=== PATIENT | female | born 1975 | race Caucasian/White ===

== ENCOUNTER 2016-09-12 10:36 | Emergency (ER) | payer BC ==
[2016-09-12] MEDS ORDERED: HYDROmorphone 1 MG/ML SYRINGE IVP STA ×2 (11:40→13:28)
[2016-09-12] MEDS ORDERED: SODIUM CHLORIDE 0.9% 1,000 ML IV ONE (11:40)
[2016-09-12] MEDS ORDERED: HYDROmorphone 1 MG/ML SYRINGE ONE ×2 (11:49→13:28)
[2016-09-12] MEDS ORDERED: LIDOCAINE VISCOUS 2% 15 ML UDC MM STA (12:10)
[2016-09-12] MEDS ORDERED: MAG HYDROX/AL HYDROX/SIMETH 30 ML UDC PO STA (12:10)
[2016-09-12] MEDS ORDERED: LIDOCAINE VISCOUS 2% 15 ML UDC MM ONE (13:04)
[2016-09-12] MEDS ORDERED: MAG HYDROX/AL HYDROX/SIMETH 30 ML UDC ONE (13:05)
[2016-09-12] MEDS ORDERED: FAMOTIDINE 20 MG/50 ML 50 ML IV ONE ×2 (13:09→13:27)
[2016-09-12] MEDS ORDERED: IOPAMIDOL-300 100 ML VIAL IVP ONE (14:02)
[2016-09-12] MEDS ORDERED: HYDROcod/ACETAM 5/325 MG TABLET PO STA (15:32)
[2016-09-12] MEDS ORDERED: HYDROcod/ACETAM 5/325 MG TABLET ONE (15:37)
== END 2016-09-12 15:58 | disposition home or self-care (01) ==
DX: R10.11 Right upper quadrant pain (principal); K21.9 Gastro-esophageal reflux disease without esophagitis; K76.0 Fatty (change of) liver, not elsewhere classified; I25.10 Atherosclerotic heart disease of native coronary artery without angina pectoris; I25.2 Old myocardial infarction; I10 Essential (primary) hypertension; G47.30 Sleep apnea, unspecified; E03.9 Hypothyroidism, unspecified; Z87.442 Personal history of urinary calculi; M19.90 Unspecified osteoarthritis, unspecified site; Z79.82 Long term (current) use of aspirin
CPT/HCPCS: 36415; 74174; 76705; 80053; 81003; 81025; 83690; 84484; 84703; 85025; 93005; 93010; 96374; 96375; 96376; 99284; A9270; J1170; Q9967

== ENCOUNTER 2016-11-23 09:53 | Emergency (ER) | payer BC ==
[2016-11-23] MEDS ORDERED: PROPARACAINE 0.5% OPHTH DROPS 15 ML ONE (10:01)
[2016-11-23 10:03] VITALS: BP 159/98
--- NOTE | 2016-11-23 10:20 | ED Physician Documentation ---
PD HPI OPHTHO - Stated complaint Stated Complaint: PAINFUL R EYE - Chief complaint Chief Complaint: Heent - History obtained from History obtained from: Patient, Friend - History of Present Illness Timing - onset: Today Timing - duration: Hours Timing - details: Gradual onset, Still present Location: Right Quality / character: Itching, Sharp Associated symptoms: Redness, Swelling, Tearing, FB sensation. No: Decreased vision, Loss of vision, Headache Contributing factors: Wears contacts, Other (has had this previously) Similar symptoms before: Diagnosis (herpes kerititis) Recently seen: Not recently seen - Additional information Additional information: 41-year-old female awoke with pain in the right eye some swelling and erythema to the conjunctivae. She notes that she has had this previously and she has been told to immediately start medication if she feels itching.She does have vaginal herpes and she did have intercourse last night and she states that periodically dry rough sex will cause an outbreak of herpes. She is wondering if the 2 are correlated and she knows that she does not have an outbreak currently. Review of Systems Constitutional: denies: Fever, Chills, Fatigue, Sweats Eyes: reports: Irritation. denies: Decreased vision Ears: denies: Ear pain Nose: reports: Other (There is no sore in the nose or cold sore). denies: Congestion Throat: denies: Sore throat Respiratory: denies: Dyspnea, Cough GI: denies: Abdominal Pain, Nausea : denies: Dysuria Skin: denies: Rash Musculoskeletal: denies: Neck pain, Back pain, Extremity pain PD PAST MEDICAL HISTORY - Past Medical History Past Medical History: Yes Cardiovascular: Hypertension, Coronary artery disease, [place], Other Respiratory: Sleep apnea Neuro: None Endocrine/Autoimmune: HyPOthyroidism GI: GERD : Incontinence, Kidney stones HEENT: None Psych: Depression Musculoskeletal: Osteoarthritis Derm: Eczema, Other - Past Surgical History Past Surgical History: Yes 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 Cardiovascular: Coronary stent, Pacemaker - Present Medications Home Medications: Ambulatory Orders Medication Instructions Recorded Confirmed Aspirin 81 mg PO DAILY 11/08/12 09/12/16 Levothyroxine Sodium [Synthroid] 200 mcg ORAL DAILY 11/08/12 09/12/16 Metoprolol Succinate 25 mg PO DAILY 12/31/12 09/12/16 Trazodone HCl 50 mg PO DAILY PRN 07/30/13 09/12/16 Fenofibric Acid (Choline) 45 mg PO DAILY 06/24/15 09/12/16 [Trilipix] Hydrocodone/Acetaminophen [[place] 1 each PO Q6H PRN #20 tablet 06/24/15 09/12/16 5-325 Tablet] Rosuvastatin Calcium [Crestor] 40 mg PO DAILY 06/24/15 09/12/16 HYDROcod/ACETAM 5/325 [[place] 5/325] 1 ea PO Q6H PRN #10 tablet 09/12/16 Sucralfate 1 gm PO ACHS #120 tablet 09/12/16 raNITIdine [Zantac] 150 mg PO BID #60 tablet 09/12/16 Acyclovir 400 mg PO 5XD #35 tablet 11/23/16 - Allergies Allergies/Adverse Reactions: Allergies Allergy/AdvReac Type Severity Reaction Status Date / Time oxycodone [Oxycodone] AdvReac Intermediate agitated, Verified 09/12/16 10:41 itching. - Social History Does the pt smoke?: No Smoking Status: Never smoker Does the pt drink ETOH?: No Does the pt have substance abuse?: No - Immunizations Immunizations are current?: Yes - POLST Patient has POLST: No PD ED PE NORMAL - Vitals Vital signs reviewed: Yes (hypertensive) - General General: No acute distress, Well developed/nourished - HEENT HEENT: Atraumatic, PERRL, EOMI, Other (with fluroscien staining the right cornea has uptake in a spotted pattern consistent with herpes keretitis and not consistent with an abrasion. ) - Neck Neck: Supple, no meningeal sign, No bony TTP - Respiratory Respiratory: No respiratory distress - Derm Derm: Normal color, Warm and dry, No rash - Extremities Extremities: No deformity, No edema - Neuro Neuro: No motor deficit, No sensory deficit - Psych Psych: Normal mood, Normal affect Results - Vitals Vitals: Vital Signs - 24 hr 11/23/16 09:57 Temperature 36.3 C L Heart Rate 77 Respiratory 20 Rate Blood Pressure 159/98 H O2 Saturation 97 Oxygen O2 Source [With Activity] Room air O2 Source Room air PD MEDICAL DECISION MAKING - ED course Complexity details: reviewed old records, considered differential, d/w patient, d/w family ED course: 41 y/o female with redness and irritation to the right eye has some fluorscein uptake in the cornea in a spotted pattern and she has had similar problem in the right eye previously. She is placed on acyclovir. Departure - Departure Disposition: 01 Home, Self Care Clinical Impression: Herpes simplex keratitis of right eye Condition: Stable Instructions: ED Herpes Keratitis Follow-Up: Mona Collier PA-C [Primary Care Provider] - Prescriptions: Acyclovir 400 mg PO 5XD #35 tablet Forms: Activity restrictions
== END 2016-11-23 10:32 | disposition home or self-care (01) ==
LOC: ED 09:53
DX: B00.52 Herpesviral keratitis (principal); I10 Essential (primary) hypertension; I25.2 Old myocardial infarction; I25.10 Atherosclerotic heart disease of native coronary artery without angina pectoris; Z95.5 Presence of coronary angioplasty implant and graft; Z96.659 Presence of unspecified artificial knee joint; Z79.82 Long term (current) use of aspirin
CPT/HCPCS: 99283; J3490

== ENCOUNTER 2018-01-04 16:35 | Emergency (ER) | payer BC ==
--- NOTE | 2018-01-04 17:08 | ED Physician Documentation ---
PD HPI LOWER EXT INJURY - Stated complaint Stated Complaint: LT LEG PX/UNABLE TO BEND - Chief complaint Chief Complaint: Ext Problem - History obtained from History obtained from: Patient - History of Present Illness PD HPI LOW EXT INJURY LOCATION: Left, Knee (back of the knee), Calf Type of injury: No: Fall, Twist Timing - onset: How many days ago (has had pain in back of knee and calf for several days. Having some pains generally in thighs and other leg as well. Graudal onset without particular injury. Does work on her feet standing and worked long days the past few days.) Timing - duration: Days Timing - details: Gradual onset, Still present Worsened by: Moving, Palpating Associated symptoms: No: Weakness, Numbness, Swelling Similar symptoms before: Has not had sx before Recently seen: Not recently seen Review of Systems Constitutional: reports: Myalgias. 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 Cardiovascular: Coronary stent, Pacemaker - Present Medications Home Medications: Ambulatory Orders Medication Instructions Recorded Confirmed Aspirin 81 mg PO DAILY 11/08/12 09/12/16 Levothyroxine Sodium [Synthroid] 200 mcg ORAL DAILY 11/08/12 09/12/16 Metoprolol Succinate 25 mg PO DAILY 12/31/12 09/12/16 Trazodone HCl 50 mg PO DAILY PRN 07/30/13 09/12/16 Fenofibric Acid (Choline) 45 mg PO DAILY 06/24/15 09/12/16 [Trilipix] Hydrocodone/Acetaminophen [[place] 1 each PO Q6H PRN #20 tablet 06/24/15 09/12/16 5-325 Tablet] Rosuvastatin Calcium [Crestor] 40 mg PO DAILY 06/24/15 09/12/16 HYDROcod/ACETAM 5/325 [[place] 5/325] 1 ea PO Q6H PRN #10 tablet 09/12/16 Alprazolam [Xanax] 01/04/18 Cyclobenzaprine [Flexeril] 01/04/18 DULoxetine [Cymbalta] 01/04/18 Dexamethasone [Decadron] 4 mg PO DAILY #5 tablet 01/04/18 Gabapentin 01/04/18 HYDROcod/ACETAM 5/325 [[place] 5/325] 1 tab PO Q6H PRN #20 tablet 01/04/18 traZODone [Desyrel] 01/04/18 - Allergies Allergies/Adverse Reactions: Allergies Allergy/AdvReac Type Severity Reaction Status Date / Time No Known Drug Allergies Allergy Verified 01/04/18 18:48 - Social History Does the pt smoke?: No Smoking Status: Never smoker Does the pt drink ETOH?: No Does the pt have substance abuse?: No - Immunizations Immunizations are current?: Yes - POLST Patient has POLST: No PD ED PE NORMAL - Vitals Vital signs reviewed: Yes - General General: Alert and oriented X 3, No acute distress, Well developed/nourished - Cardiac Cardiac: RRR, No murmur - Respiratory Respiratory: Clear bilaterally - Abdomen Abdomen: Soft, Non tender - Back Back: No CVA TTP, No spinal TTP - Derm Derm: Normal color, Warm and dry, No rash - Extremities Extremities: Other (both legs with some general muscle tenderness in thighs and calves. Left upper calf with more tenderness. No noted deformity/effusion at knees themselves. ) - Neuro Neuro: Alert and oriented X 3, No motor deficit, No sensory deficit, Normal speech Results - Vitals Vitals: Oxygen O2 Source [With Activity] Room air O2 Source Room air - Labs Labs: Laboratory Tests 01/04/18 17:43 Sodium 135 Potassium 3.6 Chloride 103 Carbon Dioxide 26 Anion Gap 6.0 BUN 20 Creatinine 0.8 Estimated GFR (MDRD) 78 L Glucose 110 H Calcium 8.6 Magnesium 2.2 Total Bilirubin 0.7 AST 18 ALT 16 Alkaline Phosphatase 36 L Total Creatine Kinase 56 Total Protein 6.8 Albumin 4.2 Globulin 2.6 Albumin/Globulin Ratio 1.6 Lipase 28 - Rads (name of study) duplex U/S Radiology: Prelim report reviewed (left leg without DVT. ) PD MEDICAL DECISION MAKING - ED course Complexity details: reviewed results (Duplex without DVT.), considered differential (tendonitis from standing a lot. She is on cholesterol med and so consider myositis from that, given the diffuse muscle aches in legs. ), d/w patient - Sepsis Event Vital Signs: Oxygen O2 Source [With Activity] Room air O2 Source Room air Departure - Departure Disposition: 01 Home, Self Care Clinical Impression: Leg pain, bilateral, Tendonitis Clinical Impression: (Ruled Out): Deep vein thrombosis Condition: Stable Record reviewed to determine appropriate education?: Yes Instructions: ED Muscle Pain Leg Cramps Follow-Up: Mona Collier PA-C [Primary Care Provider] - Prescriptions: Dexamethasone [Decadron] 4 mg PO DAILY #5 tablet HYDROcod/ACETAM 5/325 [[place] 5/325] 1 tab PO Q6H PRN #20 tablet PRN Reason: Pain Comments: Your ultrasound was normal without any signs of cysts or blood clots. Blood tests are normal without any signs of muscle breakdown and your electrolytes are okay. The cholesterol medicines can cause muscle inflammation particularly in the legs , so that could likely be a factor. I would suggest stopping your cholesterol medicines for 3-4 weeks and see overall if you have less muscle aches. It can also be causing symptoms that seem like fibromyalgia. Otherwise if you have been standing and walking a lot, you could just have tendon and muscle inflammation (tendinitis) in the back of the leg. Treat that with your meloxicam daily for a few days or as often as you can. We can add Decadron nonsteroidal anti-inflammatory. Add Tylenol or hydrocodone as needed for pains. Recheck if not improving over the next several days to week. Discharge Date/Time: 01/04/18 19:17
[2018-01-04] MEDS ORDERED: HYDROcod/ACETAM 5/325 MG TABLET PO STA (17:21)
[2018-01-04] MEDS ORDERED: KETOROLAC 30 MG/ML VIAL IM STA (17:22)
[2018-01-04 18:03] LABS: ALBUMIN 4.2 g/dL (3.2-5.5); ALBUMIN/GLOBULIN RATIO 1.6 (1.0-2.2); BILIRUBIN,TOTAL 0.7 mg/dL (0.2-1.0); CALCIUM 8.6 mg/dL (8.5-10.3); CREATININE 0.8 mg/dL (0.4-1.0); MAGNESIUM 2.2 mg/dL (1.7-2.8); TOTAL PROTEIN 6.8 g/dL (6.7-8.2)
--- NOTE | 2018-01-04 18:32 | Ultrasound Report ---
Reason: left lower leg/calf pain Procedure Date: 01/04/2018 Accession Number: [id number] / [id number] Procedure: US - Duplex Ext Veins Left CPT Code: FULL RESULT: EXAM: LEFT LOWER EXTREMITY VENOUS ULTRASOUND EXAM DATE: 01/04/2018 06:10 PM. CLINICAL HISTORY: Left calf pain. COMPARISON: None. TECHNIQUE: Real-time sonographic vascular imaging was performed by the clerical warehouseman through the lower extremity utilizing both color-flow and Doppler spectral analysis. Multiple franchise sales representative static images were saved for review. FINDINGS: Common Femoral Vein (CFV): Normal. CFV-GSV Junction: Normal. Profunda Femoral Vein (PFV): Normal. Femoral Vein (FV) Prox: Normal. Femoral Vein (FV) Mid: Normal. Femoral Vein (FV) Dist: Normal. Popliteal Vein: Normal. Posterior Tibial Veins: Normal. Peroneal Veins: Normal. Contralateral Side CFV: Normal. Other: None. IMPRESSION: No evidence for deep venous thrombosis. RADIA
[2018-01-04] MEDS ORDERED: DEXAMETHASONE 10 MG/ML VIAL PO STA (18:36)
[2018-01-04 19:08] VITALS: BP 130/64
== END 2018-01-04 19:17 | disposition home or self-care (01) ==
LOC: ED 16:35
DX: M79.605 Pain in left leg (principal); M79.604 Pain in right leg; M76.9 Unspecified enthesopathy, lower limb, excluding foot; I10 Essential (primary) hypertension; Z79.82 Long term (current) use of aspirin
CPT/HCPCS: 36415; 80053; 82550; 83690; 83735; 93971; 96372; 99283; A9270

== ENCOUNTER 2019-05-22 23:45 | Emergency (ER) | payer BC ==
[2019-05-23 00:16] LABS: BASOPHILS # (AUTO) 0.1 10^3/uL (0.0-0.1); BASOPHILS % (AUTO) 0.6 %; EOSINOPHILS % (AUTO) 0.2 %; LYMPHOCYTES # (AUTO) 3.3 10^3/uL (1.5-3.5); MEAN CORPUSCULAR HEMOGLOBIN 28.1 pg (27.0-31.0); MEAN CORPUSCULAR HGB CONC 32.9 g/dL (32.0-36.0); MEAN CORPUSCULAR VOLUME 85.3 fL (81.0-99.0); MEAN PLATELET VOLUME 10.3 fL (7.9-10.8); MONOCYTES # (AUTO) 0.6 10^3/uL (0.0-1.0); MONOCYTES % (AUTO) 7.6 %; NEUTROPHILS # (AUTO) 4.2 10^3/uL (1.5-6.6); NEUTROPHILS % (AUTO) 51.2 %; PLT - PLATELET COUNT 250 10^3/uL (130-450); RED BLOOD COUNT 4.63 10^6/uL (4.20-5.40); RED CELL DISTRIBUTION WIDTH 13.6 % (12.0-15.0); WHITE BLOOD COUNT 8.2 x10^3/uL (4.8-10.8)
[2019-05-23 00:27] LABS: ALBUMIN 4.9 g/dL (3.2-5.5); ALBUMIN/GLOBULIN RATIO 1.6 (1.0-2.2); BILIRUBIN,TOTAL 0.5 mg/dL (0.2-1.0); CREATININE 0.9 mg/dL (0.4-1.0)
[2019-05-23 00:30] LABS: BILIRUBIN,URINE NEGATIVE (NEGATIVE); GLUCOSE, URINE (UA) NEGATIVE (NEGATIVE); KETONES,URINE (UA) NEGATIVE (NEGATIVE); LEUKOCYTE ESTERASE, URINE NEGATIVE (NEGATIVE); NITRITE,URINE NEGATIVE (NEGATIVE); OCCULT BLOOD,URINE NEGATIVE (NEGATIVE); PH,URINE 5.5 PH (5.0-7.5); PROTEIN,URINE NEGATIVE (NEGATIVE); UROBILINOGEN,URINE 0.2 (NORMAL) E.U./dL (NORMAL)
[2019-05-23 00:35] LABS: CLARITY,URINE CLEAR (CLEAR)
--- NOTE | 2019-05-23 01:00 | XRAY Report ---
Reason: Chest pain Procedure Date: 05/23/2019 Accession Number: [id number] / [id number] Procedure: XR - Chest 2 View X-Ray CPT Code: 56978 Final Report FULL RESULT: EXAM: CHEST RADIOGRAPHY EXAM DATE: 05/23/2019 12:54 AM. CLINICAL HISTORY: Chest pain. COMPARISON: XR CHEST PA AND LAT 07/15/2012 2:53 AM. TECHNIQUE: 2 views. FINDINGS: Lungs/Pleura: No dense consolidation. No large effusion or pneumothorax. No pulmonary edema. Mediastinum: Heart and mediastinal contours are unremarkable. Other: Cardiac device and leads present. IMPRESSION: No acute radiographic pulmonary abnormalities. RADIA
--- NOTE | 2019-05-23 01:19 | ED Physician Documentation ---
PD HPI ABD PAIN - Stated complaint Stated Complaint: ABD PX, UPPER RT SIDE - CP - Chief complaint Chief Complaint: Cardiac - History obtained from History obtained from: Patient - History of Present Illness Timing - onset: Enter time (14:00) Timing - duration: Hours Timing - details: Gradual onset, Intermittant, Waxing and waning Pain level now: 3 Quality: Pain Location: RUQ Radiation: Chest Improved by: Other (nothing) Worsened by: Other (no apparent exacerbating factors) Associated symptoms: Nausea. No: Vomiting Similar symptoms before: Has not had sx before Recently seen: Not recently seen Review of Systems Constitutional: reports: Reviewed and negative Cardiac: reports: Chest pain / pressure. denies: Palpitations Respiratory: reports: Reviewed and negative GI: reports: Abdominal Pain, Nausea. 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 Cardiovascular: Coronary stent, Pacemaker - Present Medications Home Medications: Ambulatory Orders Medication Instructions Recorded Confirmed Aspirin 81 mg PO DAILY 11/08/12 05/23/19 Levothyroxine Sodium [Synthroid] 200 mcg ORAL DAILY 11/08/12 05/23/19 Metoprolol Succinate 25 mg PO DAILY 12/31/12 05/23/19 Trazodone HCl 100 mg PO QPM PRN 07/30/13 05/23/19 Fenofibric Acid (Choline) 45 mg PO DAILY 06/24/15 05/23/19 [Trilipix] Hydrocodone/Acetaminophen [[place] 1 each PO Q6H PRN #20 tablet 06/24/15 09/12/16 5-325 Tablet] Rosuvastatin Calcium [Crestor] 40 mg PO DAILY 06/24/15 05/23/19 Alprazolam [Xanax] 0.5 mg PO Q8HR PRN 01/04/18 05/23/19 Cyclobenzaprine [Flexeril] 20 mg PO DAILY 01/04/18 05/23/19 Gabapentin 900 mg PO DAILY 01/04/18 05/23/19 Lidocaine HCl [Lidocaine HCl 15 ml MM QID PRN #100 ml 05/23/19 Viscous] - Allergies Allergies/Adverse Reactions: Allergies Allergy/AdvReac Type Severity Reaction Status Date / Time No Known Drug Allergies Allergy Verified 05/23/19 00:00 - Social History Does the pt smoke?: No Smoking Status: Never smoker Does the pt drink ETOH?: No Does the pt have substance abuse?: No - Immunizations Immunizations are current?: Yes - POLST Patient has POLST: No PD ED PE NORMAL - Vitals Vital signs reviewed: Yes - General General: Alert and oriented X 3, No acute distress, Well developed/nourished - HEENT HEENT: Moist mucous membranes - Cardiac Cardiac: RRR, No murmur - Respiratory Respiratory: No respiratory distress, Clear bilaterally - Abdomen Abdomen: Normal bowel sounds, Soft, Non tender, Non distended - Back Back: No CVA TTP - Derm Derm: Normal color, Warm and dry, No rash Results - Vitals Vitals: Oxygen O2 Source [With Activity] Room air O2 Source Room air - EKG (time done) No standard instances Rate: Rate (enter#) (60) Rhythm: NSR [place]: LAD Intervals: Normal DC QRS: LVH Ischemia: Normal ST segments - Labs Labs: Laboratory Tests 05/23/19 05/23/19 05/23/19 00:05 00:05 00:05 WBC 8.2 RBC 4.63 Hgb 13.0 Hct 39.5 MCV 85.3 MCH 28.1 MCHC 32.9 RDW 13.6 Plt Count 250 MPV 10.3 Neut # (Auto) 4.2 Lymph # (Auto) 3.3 [place] # (Auto) 0.6 Eos # (Auto) 0.0 Baso # (Auto) 0.1 Absolute Nucleated RBC 0.00 Nucleated RBC % 0.0 Sodium 134 L Potassium 3.9 Chloride 98 L Carbon Dioxide 26 Anion Gap 10.0 BUN 28 H Creatinine 0.9 Estimated GFR (MDRD) 67 L Glucose 95 Calcium 10.0 Total Bilirubin 0.5 AST 13 ALT 12 Alkaline Phosphatase 47 Troponin I High Sens < 2.3 L Total Protein 8.0 Albumin 4.9 Globulin 3.1 Albumin/Globulin Ratio 1.6 Lipase 33 Urine Color Urine Clarity Urine pH Ur Specific [place] Urine Protein Urine Glucose (UA) Urine Ketones Urine Occult Blood Urine Nitrite Urine Bilirubin Urine Urobilinogen Ur Leukocyte Esterase Ur Microscopic Review Urine Culture Comments 05/23/19 00:20 WBC RBC Hgb Hct MCV MCH MCHC RDW Plt Count MPV Neut # (Auto) Lymph # (Auto) [place] # (Auto) Eos # (Auto) Baso # (Auto) Absolute Nucleated RBC Nucleated RBC % Sodium Potassium Chloride Carbon Dioxide Anion Gap BUN Creatinine Estimated GFR (MDRD) Glucose Calcium Total Bilirubin AST ALT Alkaline Phosphatase Troponin I High Sens Total Protein Albumin Globulin Albumin/Globulin Ratio Lipase Urine Color YELLOW Urine Clarity CLEAR Urine pH 5.5 Ur Specific [place] >=1.030 H Urine Protein NEGATIVE Urine Glucose (UA) NEGATIVE Urine Ketones NEGATIVE Urine Occult Blood NEGATIVE Urine Nitrite NEGATIVE Urine Bilirubin NEGATIVE Urine Urobilinogen 0.2 (NORMAL) Ur Leukocyte Esterase NEGATIVE Ur Microscopic Review NOT INDICATED Urine Culture Comments NOT INDICATED - Rads (name of study) RUQ US Radiology: Prelim report reviewed, See rad report chest xray Radiology: Prelim report reviewed, See rad report PD MEDICAL DECISION MAKING - ED course Complexity details: reviewed results, re-evaluated patient, considered differential, d/w patient Departure - Departure Disposition: 01 Home, Self Care Clinical Impression: Abdominal pain, Chest pain Condition: Good Instructions: ED Abdominal Pain Unkn Cause, ED Chest Pain Atypical Unkn Cause Follow-Up: Kamaljit Redmond MD [Primary Care Provider] - Prescriptions: Lidocaine HCl [Lidocaine HCl Viscous] 15 ml MM QID PRN #100 ml PRN Reason: Abdominal Pain Discharge Date/Time: 05/23/19 04:48
[2019-05-23] MEDS ORDERED: HYDROmorphone 1 MG/ML CARPUJECT IVP STA (01:35)
[2019-05-23] MEDS ORDERED: LIDOCAINE VISCOUS 2% 15 ML UDC MM STA (01:35)
[2019-05-23] MEDS ORDERED: MAG HYDROX/AL HYDROX/SIMETH 30 ML UDC PO STA (01:35)
[2019-05-23] MEDS ORDERED: KETOROLAC 30 MG/ML VIAL IVP STA (01:35)
[2019-05-23] MEDS ORDERED: ONDANSETRON 4 MG/2 ML VIAL IVP STA (03:02)
--- NOTE | 2019-05-23 03:55 | Ultrasound Report ---
Reason: RUQ pain Procedure Date: 05/23/2019 Accession Number: [id number] / [id number] Procedure: US - Abdomen Limited CPT Code: Final Report FULL RESULT: EXAM: ABDOMEN ULTRASOUND LIMITED, RUQ EXAM DATE: 05/23/2019 03:37 AM. CLINICAL HISTORY: RUQ pain. COMPARISON: ABDOMEN LIMITED 09/12/2016 12:04 PM ABDOMEN/PELVIS ANGIO 09/12/2016 1:53 PM. TECHNIQUE: Real-time scanning was performed with static images obtained. FINDINGS: Liver: Liver is echogenic, compatible with infiltration. It measures 17.3 cm. Main portal vein flow: Hepatopetal. Gallbladder: Normal. No stones, wall thickening, or sonographic Hewitt's sign. Biliary System: CBD measures 5 mm. No intrahepatic or extrahepatic ductal dilatation. Other: None. IMPRESSION: Echogenic liver, compatible with infiltration. No cholelithiasis or cholecystitis. RADIA
[2019-05-23 04:48] VITALS: BP 156/75
== END 2019-05-23 04:48 | disposition home or self-care (01) ==
LOC: ED 23:45
DX: R10.11 Right upper quadrant pain (principal); R07.9 Chest pain, unspecified; R11.0 Nausea; I44.7 Left bundle-branch block, unspecified; I10 Essential (primary) hypertension; I25.10 Atherosclerotic heart disease of native coronary artery without angina pectoris; I25.2 Old myocardial infarction; Z95.5 Presence of coronary angioplasty implant and graft; Z95.0 Presence of cardiac pacemaker; Z79.82 Long term (current) use of aspirin
CPT/HCPCS: 36415; 71046; 76705; 80053; 81003; 83690; 84484; 85025; 93005; 96374; 96375; 99284; A9270; J1170; 81001; 87086

== ENCOUNTER 2022-04-02 09:25 | Outpatient (CLI) | payer BC ==
--- NOTE | 2022-04-02 10:52 | XRAY Report ---
PROCEDURE: Lumbar Spine 2 View INDICATIONS: CERVICAL, THORACIC, LUMBAR BACK PAIN TECHNIQUE: 2 views of the lumbar spine were acquired. COMPARISON: MRI lumbar spine, 03/12/2011. FINDINGS: Bones: 5 [id number] vertebrae are present. There is slight levocurvature but normal bony align ment. No vertebral body compression fractures. No suspicious bony lesions. Mild degenerative disc disease throughout the lumbar spine. Moderate facet arthropathy at L3-L4, L4-L5 and L5-S1. Soft tissues: Overlying bowel gas pattern is normal. No suspicious soft tissue calcifications. IMPRESSION: Moderate degenerative disc disease and moderate facet arthropathy in lumbar spine. Reviewed by: Farhad Luis MD on 04/02/2022 10:51 AM PST Approved by: Farhad Luis MD on 04/02/2022 10:51 AM PST Station ID: [id number]
--- NOTE | 2022-04-02 11:17 | XRAY Report ---
PROCEDURE: Thoracic Spine 2 View INDICATIONS: CERVICAL, THORACIC, LUMBAR BACK PAIN TECHNIQUE: 2 views of the thoracic spine were acquired. COMPARISON: None. FINDINGS: Bones: No fractures or dislocations. No suspicious bony lesions. Multilevel degenerative disc disea se of moderate severity throughout the thoracic spine. 12 pairs of ribs are noted, and appear intact where visualized. Soft tissues: No paravertebral stripe thickening. Note is made of a cardiac pacemaker. IMPRESSION: Moderate degenerative disc disease in thoracic spine. Reviewed by: Farhad Luis MD on 04/02/2022 11:16 AM PST Approved by: Farhad Luis MD on 04/02/2022 11:16 AM PST Station ID: [id number]
--- NOTE | 2022-04-02 11:19 | XRAY Report ---
PROCEDURE: Cervical Spine 2 View INDICATIONS: CERVICAL, THORACIC, LUMBAR BACK PAIN TECHNIQUE: 3 view(s) of the cervical spine were acquired. COMPARISON: None. FINDINGS: Bones: No fractures or dislocations to the C7 level. Straightening of cervical curvature. The later al masses of C1 appear intact on the odontoid view. No suspicious bony lesions. Moderate degenerati ve disc disease at C5-C6 and C6-C7. Bilateral facet arthropathy, most pronounced and moderate at C3-C 4, C4-C5 and C5-C6. Soft tissues: No prevertebral soft tissue swelling. IMPRESSION: Moderate degenerative disc and facet disease in cervical spine. Reviewed by: Farhad Luis MD on 04/02/2022 11:18 AM PST Approved by: Farhad Luis MD on 04/02/2022 11:18 AM PST Station ID: [id number]
--- NOTE | 2022-04-02 14:23 | Ultrasound Report ---
PROCEDURE: Chest INDICATIONS: DISORDERS OF MUSCLE. Left mid back lump palpated by physician. TECHNIQUE: Real time scanning was performed of the left mid back region of interest, with image docu mentation. COMPARISON: None. FINDINGS: At the patient indicated area of clinical concern, the soft tissues of the left mid back and the infe rior margin of the scapula, an encapsulated avascular oblong hypoechoic lesion with fine linear stria tions is present. It measures approximately 2.5 x 0.8 x 4.6 cm. This finding appears asymmetric lena red to comparison imaging of the contralateral side/right back. This is approximately 1.2 cm deep to the skin surface, and may be within the back/ paraspinous musculature. IMPRESSION: A 4.6 cm mass is present in the soft tissues of the left mid back corresponding to the area of concer n. This could represent a lipoma, other etiologies are not excludable. Clinical follow-up is recommen ded and if the finding increases in size or the patient develops symptoms such as pain, a repeat exam ination or MRI could be obtained. Reviewed by: David Helm MD on 04/02/2022 2:21 PM PST Approved by: David Helm MD on 04/02/2022 2:21 PM PST Station ID: [id number]
--- NOTE | 2022-04-02 17:42 | XRAY Report ---
PROCEDURE: Hand 3 View BILAT INDICATIONS: HAND AND WRIST PAIN TECHNIQUE: 2 views of the hand(s) acquired. COMPARISON: None FINDINGS: Bones: No fractures or dislocations. No suspicious bony lesions. Moderately severe degenerative art hritis involving the bilateral first carpometacarpal joints. Mild left first MCP joint degenerative a rthritis. Soft tissues: No suspicious soft tissue calcifications. IMPRESSION: Moderately severe severe degenerative arthritis involving the base of the thumbs bilaterally. No evid ence acute bony abnormality of the hands. Reviewed by: Blaine Vazquez MD on 04/02/2022 5:41 PM PST Approved by: Blaine Vazquez MD on 04/02/2022 5:41 PM PST Station ID: [id number]
--- NOTE | 2022-04-02 18:18 | XRAY Report ---
PROCEDURE: Wrist 3 View BILAT INDICATIONS: HAND AND WRIST PAIN TECHNIQUE: 3 views of the bilateral wrists were acquired. COMPARISON: Bilateral hands FINDINGS: Bones: No fractures or dislocations. No suspicious bony lesions. Moderately severe bilateral first carpometacarpal joint degenerative arthritis. Mild right triscaphe joint degenerative arthritis. Soft tissues: No suspicious soft tissue calcifications. IMPRESSION: Moderately severe bilateral degenerative arthritis of the base of the thumbs. Reviewed by: Blaine Vazquez MD on 04/02/2022 6:17 PM PST Approved by: Blaine Vazquez MD on 04/02/2022 6:17 PM PST Station ID: [id number]
== END 2022-04-02 09:26 | disposition home or self-care (01) ==
LOC: DI 09:25
PROVIDERS: ATTEND Physician Assistant
DX: R22.2 Localized swelling, mass and lump, trunk (principal); M51.36 Other intervertebral disc degeneration, lumbar region; M51.37 Other intervertebral disc degeneration, lumbosacral region; M47.816 Spondylosis without myelopathy or radiculopathy, lumbar region; M47.817 Spondylosis without myelopathy or radiculopathy, lumbosacral region; M51.34 Other intervertebral disc degeneration, thoracic region; M47.812 Spondylosis without myelopathy or radiculopathy, cervical region; M50.322 Other cervical disc degeneration at C5-C6 level; M18.0 Bilateral primary osteoarthritis of first carpometacarpal joints; M19.042 Primary osteoarthritis, left hand; M19.041 Primary osteoarthritis, right hand; M19.032 Primary osteoarthritis, left wrist; M19.031 Primary osteoarthritis, right wrist

== ENCOUNTER 2022-04-26 12:09 | Outpatient (CLI) | payer BC ==
[2022-04-26] MEDS ORDERED: iohexoL-300 100 ML VIAL ONE (12:20)
[2022-04-26] MEDS ORDERED: iohexoL-300 100 ML VIAL IVP ONE (13:21)
--- NOTE | 2022-04-26 18:35 | CT Report ---
PROCEDURE: CT brain with and without contrast INDICATIONS: PSEUDOTUMOR TECHNIQUE: 4.5 mm thick angled axial sections acquired from the foramen magnum to the vertex before and after th e administration of intravenous contrast. For radiation dose reduction, the following was used: aut omated exposure control, adjustment of mA and/or kV according to patient size. CONTRAST: 100mL [id number] COMPARISON: None FINDINGS: Image quality: Excellent. CSF Spaces: Basal cisterns are patent. No extra-axial fluid collections. Ventricles are normal in size and shape. Brain: No midline shift. No intracranial bleeds or masses. No abnormal intracranial enhancement. Andino-white interface appears normal. Atrophy and chronic ischemic change noted. Skull and face: Calvarium and visualized facial bones appear intact, without suspicious lesions. Sinuses: Visualized sinuses and mastoids are clear. IMPRESSION: Atrophy and chronic ischemic change without intracranial hemorrhage or mass effect. No abnormal enhan cement. Reviewed by: Mingo Cordero MD on 04/26/2022 5:33 PM [facility] Approved by: Mingo Cordero MD on 04/26/2022 5:33 PM [facility] Station ID: [id number]
== END 2022-04-26 12:10 | disposition home or self-care (01) ==
LOC: DI 12:09
PROVIDERS: ATTEND Internal Medicine
DX: G93.32 Myalgic encephalomyelitis/chronic fatigue syndrome (principal); G31.9 Degenerative disease of nervous system, unspecified; I67.82 Cerebral ischemia
CPT/HCPCS: 70470; Q9967

== ENCOUNTER 2022-08-16 10:33 | Emergency (ER) | payer BC ==
[2022-08-16] MEDS ORDERED: DROPERIDOL 5 MG/2 ML VIAL IVP STA (11:54)
[2022-08-16] MEDS ORDERED: SODIUM CHLORIDE 0.9% 1,000 ML IV STA (11:54)
[2022-08-16] MEDS ORDERED: KETOROLAC 30 MG/ML VIAL IVP STA (11:54)
[2022-08-16] MEDS ORDERED: diphenhydrAMINE INJ 50 MG/ML VIAL IVP STA (11:54)
--- NOTE | 2022-08-16 11:57 | ED Physician Documentation ---
PD HPI HEADACHE - Stated complaint Stated Complaint: MIGRAINE/BHATTI/NAUSEA - Chief complaint Chief Complaint: Neuro - History obtained from History obtained from: Patient - History of Present Illness Timing - duration: Days (3) Timing - details: Gradual onset Pain level max: 9 Pain level now: 9 Location: Front Quality: Throbbing, Aching. No: Thunderclap Associated symptoms: Nausea, Vomiting. No: Fever, Stiff neck, Weakness, Numbness, Syncope, Seizure Improved by: Rest, Dark room Worsened by: Light, Noise Contributing factors: No: Anticoagulated - Additional information Additional information: Patient is a 47-year-old female who presents to the emergency department complaining of a headache. She states that this started 3 days ago, gradually worsening since that time. Took Excedrin without relief. Has had nausea and vomiting. Worse with lights and sounds. She states that she had pseudotumor cerebri when she was younger, approximately 20 years ago. Has had intermittent headaches since then. The pain feels like it is behind her eyes. No recent illnesses. No trauma. Review of Systems Constitutional: denies: Fever, Chills Throat: denies: Sore throat Cardiac: denies: Chest pain / pressure, Palpitations Respiratory: denies: Cough GI: reports: Nausea, Vomiting. denies: Abdominal Pain, Diarrhea Skin: denies: Rash Musculoskeletal: denies: Neck pain, Back pain Neurologic: denies: Focal weakness, Numbness PD PAST MEDICAL HISTORY - Past Medical History Cardiovascular: Hypertension, Coronary artery disease, ID, Other Respiratory: Sleep apnea Endocrine/Autoimmune: HyPOthyroidism GI: GERD : Incontinence, Kidney stones HEENT: None Psych: Depression, Anxiety Musculoskeletal: Osteoarthritis Derm: Eczema, Other - Past Surgical History Past Surgical History: Yes Ortho: Knee replacement /[employer]: section Cardiovascular: Coronary stent, Pacemaker - Present Medications Home Medications: Ambulatory Orders Medication Instructions Recorded Confirmed Aspirin 81 mg PO DAILY 11/08/12 05/23/19 Levothyroxine Sodium [Synthroid] 200 mcg ORAL DAILY 11/08/12 05/23/19 Metoprolol Succinate 25 mg PO DAILY 12/31/12 05/23/19 Trazodone HCl 100 mg PO QPM PRN 07/30/13 05/23/19 Fenofibric Acid (Choline) 45 mg PO DAILY 06/24/15 05/23/19 [Trilipix] Hydrocodone/Acetaminophen [[place] 1 each PO Q6H PRN #20 tablet 06/24/15 09/12/16 5-325 Tablet] Rosuvastatin Calcium [Crestor] 40 mg PO DAILY 06/24/15 05/23/19 ALPRAZolam [Xanax] 0.5 mg PO Q8HR PRN 01/04/18 05/23/19 Cyclobenzaprine [Flexeril] 20 mg PO DAILY 01/04/18 05/23/19 Gabapentin 900 mg PO DAILY 01/04/18 05/23/19 Lidocaine HCl [Lidocaine HCl 15 ml MM QID PRN #100 ml 05/23/19 Viscous] - Allergies Allergies/Adverse Reactions: Allergies Allergy/AdvReac Type Severity Reaction Status Date / Time No Known Drug Allergies Allergy Verified 08/16/22 10:50 - Social History Does the pt smoke?: No Smoking Status: Never smoker Does the pt drink ETOH?: No Does the pt have substance abuse?: No - Immunizations Immunizations are current?: Yes - POLST Patient has POLST: No PD ED PE NORMAL - Vitals Vital signs reviewed: Yes - General General: Alert and oriented X 3, No acute distress - HEENT HEENT: PERRL, Moist mucous membranes - Neck Neck: Supple, no meningeal sign - Cardiac Cardiac: RRR, Strong equal pulses - Respiratory Respiratory: No respiratory distress, Clear bilaterally - Abdomen Abdomen: Soft, Non tender, Non distended - Derm Derm: Warm and dry - Extremities Extremities: No edema, No calf tenderness / cord - Neuro Neuro: Alert and oriented X 3, maintenance chief 2-12 intact, No motor deficit, No sensory deficit, Normal speech, Other (Normal cerebellar test. Normal gait) Eye Opening: Spontaneous Motor: Obeys Commands Verbal: Oriented GCS Score: 15 - Psych Psych: Normal mood, Normal affect Results - Vitals Vitals: Vital Signs - 24 hr 08/16/22 08/16/22 08/16/22 10:46 12:04 13:51 Temperature 37.3 C Heart Rate 60 61 59 L Respiratory 16 20 18 Rate Blood Pressure 143/73 H 156/59 H O2 Saturation 99 99 98 08/16/22 14:45 Temperature 36.9 C Heart Rate 61 Respiratory 18 Rate Blood Pressure 153/62 H O2 Saturation 98 Oxygen O2 Source [With Activity] Room air O2 Source Room air - Rads (name of study) head CT Relevant Findings:: Final report received, See rad report PD Medical Decision Making - ED course Complexity details: reviewed results, re-evaluated patient, considered differential, d/w patient ED course: Patient with an ongoing headache for several days. No acute findings on head CT. She was initially treated with Toradol, droperidol and Benadryl. Headache persisted. Given a single dose of Dilaudid and headache fully resolved. Patient states she feels much better. Does not have any further light sensitivity. No nausea or vomiting. No indication for LP. No evidence of meningitis, encephalitis or subarachnoid hemorrhage. Patient counseled regarding signs and symptoms for which I believe and urgent re-evaluation would be necessary. Patient with good understanding of and agreement to plan and is comfortable going home at this time This document was made in part using voice recognition software. While efforts are made to proofread this document, sound alike and grammatical errors may occur. Departure - Departure Disposition: 01 Home, Self Care Clinical Impression: Headache Qualifiers: Headache type: unspecified Headache chronicity pattern: acute headache Intractability: not intractable Qualified Code(s): R51.9 - Headache, unspecified Condition: Good Instructions: ED Cephalgia Unspecified Follow-Up: Sarkis Armendariz MD [Primary Care Provider] - Within 1 week Comments: Please follow-up with your doctor for further care. Please return if you worsen. I would recommend that you go home and rest today. Your head CT does not show any acute abnormalities. You are not to drive today. Discharge Date/Time: 08/16/22 14:56
[2022-08-16] MEDS ORDERED: HYDROmorphone 1 MG/ML CARPUJECT IVP STA (12:46)
--- NOTE | 2022-08-16 13:27 | CT Report ---
PROCEDURE: HEAD WO INDICATIONS: BHATTI x 3 days TECHNIQUE: Noncontrast 4.5 mm thick angled axial sections acquired from the foramen magnum to the vertex. For r adiation dose reduction, the following was used: automated exposure control, adjustment of mA and/or kV according to patient size. COMPARISON: CT head with and without contrast dated 04/26/2020 FINDINGS: Image quality: Excellent. CSF spaces: Basal cisterns are patent. No extra-axial fluid collections. Ventricles are normal in size and shape. Brain: No midline shift. No intracranial masses or hemorrhage. Andino-white matter interface is norm al. Skull and face: Calvarium and visualized facial bones are intact, without suspicious lesions. Sinuses: Visualized sinuses and mastoids are clear. IMPRESSION: No acute intracranial pathology Reviewed by: Blaine Vazquez MD on 08/16/2022 1:26 PM PDT Approved by: Blaine Vazquez MD on 08/16/2022 1:26 PM PDT Station ID: [id number]
[2022-08-16 14:46] VITALS: BP 153/62
== END 2022-08-16 14:56 | disposition home or self-care (01) ==
LOC: ED 10:33
DX: R51.9 Headache, unspecified (principal); I10 Essential (primary) hypertension; I25.10 Atherosclerotic heart disease of native coronary artery without angina pectoris; I25.2 Old myocardial infarction; E03.9 Hypothyroidism, unspecified; Z95.0 Presence of cardiac pacemaker; Z79.899 Other long term (current) drug therapy; Z79.82 Long term (current) use of aspirin
CPT/HCPCS: 70450; 96374; 96375; 99283; 99284; J1170; J1200

== ENCOUNTER 2023-02-25 13:24 | Outpatient (CLI) | payer BC ==
--- NOTE | 2023-02-25 14:12 | Sleep Patient Instructions ---
Sleep Center Visit Summary - Patient Visit Information Reason for Visit: Initial consult for evaluation of sleep disordered breathing and other sleep issues. - Patient Instructions Instructions Attached: Sleep Study, Sleep Study Home Monitor Additional Instructions: You will be completing a sleep study, either an in-lab polysomnography (PSG) or home sleep study (HST). You will follow-up in the sleep care office after the sleep study is completed to hear the results and talk about therapy, if needed. You will be called by our office staff to schedule this appointment, but you may contact us with any questions. - Clinic Information Contact: [facility] [address] [place] [id number] [email or web address] T: [phone]
--- NOTE | 2023-02-25 14:18 | SLEEP CARE CONSULTATION ---
Information from patient questionnaire entered by Charissa Avitia. I have reviewed and concur with the information entered by Charissa Avitia. This document represents the service I personally performed and the decisions made by me, Danielle Martinez ARNP. 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 denies: Choking Toss, Turn, or Twitch while sleeping: Yes Recalls having dreams: Yes Usually gets out of bed at: 10 AM TO 11AM Feels refreshed in the morning: No (only sometimes) Morning headache: Yes (2-3 a week; last after coffee) Sleepy or fatigued during the day: Yes Ever fallen asleep while driving: No Takes day naps: Yes (not often) Dreams during day naps: Yes Prior sleep studies: Yes (HERE) Additional HPI information: YARA VILLARREAL was previously diagnosed to have mild, AHI 6.2, obstructive sleep apnea-hypopnea syndrome as documented in consultation note dated 05/31/[address] De Luna and comes in today to re-establish care. She had positional mild sleep apnea and was told she could avoid sleeping on her back to control sleep apnea. She did have a CPAP that she could use if having to sleep supine as needed. She has not been using the CPAP since 2013. She would like to restart using her CPAP and needs a new device. She is having more chest pain with exertion. She has been diagnosed with mild CHF after a heart attack and one stent placed. She is not feeling as rested as before but she is not sleeping on her back. She is a stomach sleeper. 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 Her snoring is loud according to her and sometimes he will sleep in other room. - Parasomnia Symptoms Ever been unable to move upon waking from sleep: No Walks in sleep: No Talks in sleep: No Ever acted out dreams in sleep: No Ever felt weak in the knees when startled or emotional: Yes Bothered by creepy, crawly, restless sensations in legs: Yes (any time laying down; taking gabapentin for this) Problems with memory or concentration: Yes (memory) Subjective Initial [place] Sleepiness Scale score: 10 (02/25/23) Past Medical History Past Medical History: reports: Hypertension, Claustrophobia, Congestive Heart Failure, Arthritis, Coronary Heart Disease (heart attack with one stent placed and has a pacemaker), Hypothyroidism (radioactive iodine), Fibromyalgia, Anxiety, Depression, Mood disorder (Bipolar), GERD, Other (PACEMAKER) Social History 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 Patient is and lives in [place]. Have you smoked in the past 12 months: Yes (smoking and vaping) Cigarettes per day (20/pack): 10 (OR LESS) Years of smokin Smoking Pack Years: 1.0 Alcohol use: Yes Alcohol amount and frequency: 1-2 RARELY Caffeine use: Yes Caffeine amount and frequency: 1-2 MUGS 12OZ DAILY Family History Family history of sleep disordered breathing: Yes Family Hx Sleep Apnea: Mother: Snoring, Father: Snoring, Sibling: Snoring, Sleep apnea - Treated Allergies and Home Medications Known drug allergies: No Drug allergies reviewed: Yes Home medication list reviewed: Yes Allergy and home medication list: Allergies No Known Drug Allergies Allergy (Verified 02/24/23 09:19) Home Medications Medication Instructions Recorded Confirmed Last Taken Type Aspirin 81 mg PO DAILY 11/08/12 02/25/23 05/23/19 History 81 mg Levothyroxine Sodium [Synthroid] 200 mcg ORAL DAILY 11/08/12 02/25/23 05/23/19 History 200 mcg Metoprolol Succinate 25 mg PO DAILY 12/31/12 02/25/23 05/23/19 History Trazodone HCl 100 mg PO QPM PRN 07/30/13 02/25/23 05/22/19 History 50 mg Rosuvastatin Calcium [Crestor] 40 mg PO DAILY 06/24/15 02/25/23 05/23/19 History ALPRAZolam [Xanax] 0.5 mg PO Q8HR PRN 01/04/18 02/25/23 Unknown History Gabapentin 900 mg PO DAILY 01/04/18 02/25/23 05/23/19 History DULoxetine [Cymbalta] See Rx Instructions .ROUTE .COMPLEX 02/25/23 02/25/23 Unknown History Evolocumab [Repatha Sureclick] See Rx Instructions .ROUTE .COMPLEX 02/25/23 02/25/23 Unknown History Losartan [Cozaar] See Rx Instructions .ROUTE .COMPLEX 02/25/23 02/25/23 Unknown History Oxycodone HCl/Acetaminophen See Rx Instructions .ROUTE .COMPLEX 02/25/23 Unknown History [Percocet 10-325 mg Tablet] Review of Systems Weight gain over past 5 years: 10 Weight loss over past 5 years: 40 Cardiovascular: reports: high blood pressure, chest pain, leg or foot swelling Gastrointestinal: reports: heartburn, difficulty swallowing Urinary: reports: urgency Neurological: reports: headaches, gait or balance problems Psychiatric: reports: anxiety, depression, mood disorder, claustrophobia Ear/Nose/Throat: reports: nasal congestion, dry mouth/throat, hoarseness, wisdom teeth removed. denies: tonsillectomy Endocrine: reports: thyroid disease, history of goiter, sluggishness, too hot or cold, excessive thirst, increased appetite, increased urination Musculoskeletal: reports: joint pain, neck pain, back pain, joint swelling, muscle pain or cramping, mobility problems Immunologic: reports: rash, itching Physical Exam Vital signs obtained and entered by: CHARISSA Cordova MA Blood Pressure: 122/66 (LEFT ARM) Cuff size: regular Heart Rate: 60 O2 Saturation: 97 Height: 5 ft 2 in Weight: 247 lb 6.4 oz Body Mass Index: 45.2 BMI Classification: Morbidly Obese Neck circumference: 16 Mouth and throat: narrow oropharynx Soft palate: long Hard palate: normal Uvula: normal Uvula visualization: 25% Mallampati Class III Tongue: enlarged in size with teeth vidales on lateral edges Tonsils: 2+ Neck: normal w/o lymphadenopathy or thyromegaly Heart: regular rate and rhythm Lungs: clear bilaterally Impression and Plan 1. Suspected Obstructive Sleep Apnea-Hypopnea Syndrome, as previously diagnosed and as suggested by a history of loud and irregular snoring, gasping or choking in sleep, morning headache, unrefreshed sleep and cognitive impairment. Narrow oropharynx and obesity are common predisposing factors for obstructive sleep apnea-hypopnea syndrome. I recommend proceeding to polysomnography to confirm the diagnosis and to assess severity. If the patient has significant sleep disordered breathing, a manual CPAP titration study will also be performed to find the optimal treatment pressure. I informed the patient of what the sleep studies involve and after some discussion, obtained agreement to proceed. The pathophysiology of obstructive sleep apnea-hypopnea syndrome was discussed with the patient and health risks of cardiovascular and cerebrovascular disease if not treated. Risks of drowsy driving discussed in detail and patient advised to avoid long distance driving and to side puller at the first sign of drowsiness. Patient agreed to plan. * Schedule polysomnography. * Avoid long distance driving or driving when feeling sleepy. * Avoid alcohol, sedative and muscle relaxant around bedtime. * Attempt to lose weight. * Review instructions provided by trained office staff on how to prepare for the sleep study. * Return for follow-up after sleep study completed. Counseling Topics: Weight loss health impact Plan: PSG Visit Type: In Office Time Spent with Patient (minutes): 33 Provider Statement: I spent 100% of the Face to Face Visit with the patient with greater than 50% spent counseling the patient and coordination of care.
[2023-02-25 14:27] VITALS: BP 122/66; O2SAT 97
== END 2023-02-25 13:25 | disposition home or self-care (01) ==
LOC: SC 13:24
PROVIDERS: ATTEND Nurse Practitioner Family
DX: G47.33 Obstructive sleep apnea (adult) (pediatric) (principal); I50.9 Heart failure, unspecified; I25.2 Old myocardial infarction; Z95.5 Presence of coronary angioplasty implant and graft; F17.210 Nicotine dependence, cigarettes, uncomplicated; E66.01 Morbid (severe) obesity due to excess calories; Z68.42 Body mass index [BMI] 45.0-49.9, adult
CPT/HCPCS: 99203; 99212

== ENCOUNTER 2023-02-25 19:33 | Emergency (ER) | payer BC ==
--- NOTE | 2023-02-25 20:01 | XRAY Report ---
PROCEDURE: Chest 1 View X-Ray INDICATIONS: Chest pain TECHNIQUE: One view of the chest was acquired. COMPARISON: Chest radiographs 05/23/2019. FINDINGS: Surgical changes and devices: A cardiac pacemaker is seen with pulse generator in the left chest. Lungs and pleura: No pleural effusions or pneumothorax. Lungs are clear. Mediastinum: Mediastinal contours appear normal. Heart size is enlarged. Bones and chest wall: No suspicious bony lesions. Overlying soft tissues appear unremarkable. IMPRESSION: Cardiomegaly. No acute pulmonary opacity. Reviewed by: David Odonnell MD on 02/25/2023 7:59 PM PDT Approved by: David Odonnell MD on 02/25/2023 7:59 PM PDT Station ID: [id number]
[2023-02-25] MEDS ORDERED: NITROGLYCERIN SL 0.4 MG TABLET SL STA (20:32)
[2023-02-25] MEDS ORDERED: ONDANSETRON 4 MG/2 ML VIAL IVP STA (20:33)
--- NOTE | 2023-02-25 20:37 | ED Physician Documentation ---
PD HPI CHEST PAIN - Stated complaint Stated Complaint: CHEST PX/LT ARM PX - Chief complaint Chief Complaint: Cardiac - History obtained from History obtained from: Patient, Family - Additional information Additional information: The patient comes to the emergency department with chief complaint of chest pains on and off for the last 5 days. She states it first started when she was taking the trash out at work. She states she had had a very busy week and was in a hurry because her shift was almost over. As she was hurrying with the trash she began to notice a sharp pain in her left anterior chest. She states that it only lasted a few seconds but it made her feel afraid and then she began to feel anxious. She states she was breathing faster, but this did not make the pain worse. She states that she sat down and was able to calm down and did not have any further chest pain. There were no other symptoms associated with at that time. The patient states she did not have any further episodes till the next day and that each day since, she has had an episode. She states it always happens when she gets up and around. She denies any nausea, diaphoresis, or syncope/near syncope. She states that she has had some pain around her scapula and into her shoulder and left arm and subsequent episodes, and that she just has a vague ache in her left arm for the last few days. She denies any worsening with position or movement. The patient has a history of an ND about 18 years ago and states that she had 1 stent placed. She states there is also another area that they said had some blockage but not enough to do anything about it. 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 The patient has not had any symptoms whatsoever until just 5 days ago when this all started. She states that she otherwise has felt well. She denies any exhaustion that is unusual. She has been under a lot of stress at work because she has been having to work very long hours for some weeks. The patient states she has a demand pacemaker because she had symptomatic bradycardia for some years after her ND and finally, a pacemaker was placed in 2012. She just had this interrogated back in October and was told everything was going well. The patient has a history of hyperlipidemia and hypertension, but not diabetes. She states her father of an ND at 47. She does state that she has taken up smoking again after quitting for 12 years. She smoked for the last couple of years mostly less than half a pack a day, that is sometimes a little more when she is stressed out. She states mostly, she is vaping. The patient states that currently she has a slight ache in her left arm but otherwise is asymptomatic. No other complaints at this time. 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 Cardiovascular: Coronary stent, Pacemaker - Present Medications Home Medications: Ambulatory Orders Medication Instructions Recorded Confirmed Aspirin 81 mg PO DAILY 11/08/12 02/25/23 Levothyroxine Sodium [Synthroid] 200 mcg ORAL DAILY 11/08/12 02/25/23 Metoprolol Succinate 25 mg PO DAILY 12/31/12 02/25/23 Trazodone HCl 100 mg PO QPM PRN 07/30/13 02/25/23 Rosuvastatin Calcium [Crestor] 40 mg PO DAILY 06/24/15 02/25/23 ALPRAZolam [Xanax] 0.5 mg PO Q8HR PRN 01/04/18 02/25/23 Gabapentin 900 mg PO DAILY 01/04/18 02/25/23 DULoxetine [Cymbalta] See Rx Instructions .ROUTE .COMPLEX 02/25/23 02/25/23 Evolocumab [Repatha Sureclick] See Rx Instructions .ROUTE .COMPLEX 02/25/23 02/25/23 Losartan [Cozaar] See Rx Instructions .ROUTE .COMPLEX 02/25/23 02/25/23 Oxycodone HCl/Acetaminophen See Rx Instructions .ROUTE .COMPLEX 02/25/23 02/25/23 [Percocet 10-325 mg Tablet] - Allergies Allergies/Adverse Reactions: Allergies Allergy/AdvReac Type Severity Reaction Status Date / Time No Known Drug Allergies Allergy Verified 02/25/23 19:36 - Social History Does the pt smoke?: No Smoking Status: Never smoker Does the pt drink ETOH?: No Does the pt have substance abuse?: No - Immunizations Immunizations are current?: Yes - POLST Patient has POLST: No PD ED PE NORMAL - Vitals Vital signs reviewed: Yes - General General: Alert and oriented X 3, No acute distress, Well developed/nourished - HEENT HEENT: Atraumatic, PERRL, EOMI, Moist mucous membranes - Neck Neck: Supple, no meningeal sign - Cardiac Cardiac: RRR, No murmur, Strong equal pulses - Respiratory Respiratory: No respiratory distress, Clear bilaterally - Abdomen Abdomen: Soft, Non tender, Non distended - Back Back: Other (Tenderness palpation over the intrascapular musculature and trapezius distribution that does not recreate the pain in her back or shoulder.) - Derm Derm: Normal color, Warm and dry, No rash - Extremities Extremities: No deformity, No edema, No calf tenderness / cord - Neuro Neuro: Alert and oriented X 3 - Psych Psych: Normal mood, Normal affect Results - Vitals Vitals: Oxygen O2 Source [] Room air O2 Source Room air - EKG (time done) 2025 EKG releavant findings:: EKG personally interpreted by author of this note. Relevant findings are: Rate: Rate (enter#) (89) Rhythm: NSR [place]: Normal Intervals: Normal VT QRS: Normal Ischemia: Normal ST segments, Non specific changes Compare to prior EKG: Old EKG unavailable Computer interpretation: Agree with computer - Labs Labs: Laboratory Tests 02/25/23 02/25/23 20:18 20:18 WBC 8.5 RBC 4.62 Hgb 13.0 Hct 40.2 MCV 87.0 MCH 28.1 MCHC 32.3 RDW 14.1 Plt Count 222 MPV 10.7 Neut # (Auto) 5.1 Lymph # (Auto) 2.9 [place] # (Auto) 0.4 Eos # (Auto) 0.0 Baso # (Auto) 0.0 Absolute Nucleated RBC 0.00 Nucleated RBC % 0.0 Sodium 136 Potassium 3.7 Chloride 101 Carbon Dioxide 28 Anion Gap 7.0 BUN 16 Creatinine 0.7 Estimated GFR (MDRD) 89 Glucose 87 Calcium 9.8 Total Bilirubin 0.3 AST 10 ALT 8 L Alkaline Phosphatase 56 Troponin I High Sens < 2.3 L Total Protein 7.3 Albumin 4.8 Globulin 2.5 Albumin/Globulin Ratio 1.9 Lipase 68 PD Medical Decision Making - ED course Complexity details: reviewed results, re-evaluated patient, considered differential, d/w patient ED course: The patient was worked up with studies including CBC ER abdominal panel, troponin, EKG, and chest x-ray. She was treated with nitroglycerin and IV fluids. The pt was feeling better per nursing report, but I was informed that she had become exasperated with the wait for the second troponin to be drawn (2 hours), and did not like the behavior of the person in the bed nextdoor to her. The pt had stated her intent to leave without getting a repeat troponin. I was involved with the care of another patient at that time, and could not immediately go talk to the pt, though I asked nursing staff to inform the pt that I would come talk to her shortly. However, before I could come talk to her, the pt left the ED. Nursing staff informed me that they had asked her to sign an AMA form when she left, which she did, but since I did not personally get to speak with her, I did not feel I could sign this form myself. Departure - Departure Disposition: 07 Against Medical Advice Forms: PCP List Discharge Date/Time: 02/25/23 22:30
[2023-02-25] MEDS ORDERED: SODIUM CHLORIDE 0.9% 1,000 ML IV STA (20:39)
[2023-02-25 20:52] LABS: BASOPHILS % (AUTO) 0.2 %; EOSINOPHILS % (AUTO) 0.4 %; HCT - HEMATOCRIT 40.2 % (37.0-47.0); LYMPHOCYTES # (AUTO) 2.9 10^3/uL (1.5-3.5); LYMPHOCYTES % (AUTO) 33.8 %; MEAN CORPUSCULAR HEMOGLOBIN 28.1 pg (27.0-31.0); MEAN CORPUSCULAR HGB CONC 32.3 g/dL (32.0-36.0); MEAN PLATELET VOLUME 10.7 fL (7.9-10.8); MONOCYTES # (AUTO) 0.4 10^3/uL (0.0-1.0); MONOCYTES % (AUTO) 4.8 %; NEUTROPHILS # (AUTO) 5.1 10^3/uL (1.5-6.6); NEUTROPHILS % (AUTO) 60.6 %; PLT - PLATELET COUNT 222 10^3/uL (130-450); RED BLOOD COUNT 4.62 10^6/uL (4.20-5.40); RED CELL DISTRIBUTION WIDTH 14.1 % (12.0-15.0); WHITE BLOOD COUNT 8.5 x10^3/uL (4.8-10.8)
[2023-02-25] MEDS ORDERED: ACETAMINOPHEN 325 MG TABLET PO STA (21:03)
[2023-02-25] MEDS ORDERED: KETOROLAC 30 MG/ML VIAL IVP STA (21:03)
[2023-02-25 21:20] LABS: ALBUMIN 4.8 g/dL (3.2-5.5); ALBUMIN/GLOBULIN RATIO 1.9 (1.0-2.2); ALKALINE PHOSPHATASE 56 IU/L (42-121); ALT ALANINE AMINOTRANSFERASE 8 IU/L (10-60); AST ASPARTATE AMINOTRANSFERASE 10 IU/L (10-42); BILIRUBIN,TOTAL 0.3 mg/dL (0.2-1.0); BUN - BLOOD UREA NITROGEN 16 mg/dL (6-20); CALCIUM 9.8 mg/dL (8.5-10.3); CARBON DIOXIDE - CO2 28 mmol/L (21-32); CHLORIDE 101 mmol/L (101-111); CREATININE 0.7 mg/dL (0.6-1.3); GFR - MDRD 89 (>89); GLUCOSE 87 mg/dL (74-104); LIPASE 68 U/L (11-82); POTASSIUM 3.7 mmol/L (3.5-4.5); SODIUM 136 mmol/L (135-145); TOTAL PROTEIN 7.3 g/dL (6.4-8.9)
[2023-02-25 21:42] LABS: TROPONIN I HIGH SENSITIVITY < 2.3 ng/L (2.3-14.8)
[2023-02-25 22:17] VITALS: BP 150/75; O2SAT 98
== END 2023-02-25 22:30 | disposition left against medical advice (07) ==
LOC: ED 19:33
DX: I10 Essential (primary) hypertension (principal); I25.10 Atherosclerotic heart disease of native coronary artery without angina pectoris; I25.2 Old myocardial infarction; E03.9 Hypothyroidism, unspecified; F17.290 Nicotine dependence, other tobacco product, uncomplicated; Z79.82 Long term (current) use of aspirin; Z79.899 Other long term (current) drug therapy; Z95.0 Presence of cardiac pacemaker
CPT/HCPCS: 36415; 71045; 80053; 83690; 84484; 85025; 93005; 96374; 96375; 99284; A9270

== ENCOUNTER 2023-07-26 19:01 | Day surgery (SDC) | payer BC, OTHER ==
[2023-07-26 19:29] LABS: BASOPHILS % (AUTO) 0.4 %; EOSINOPHILS # (AUTO) 0.1 10^3/uL (0.0-0.7); EOSINOPHILS % (AUTO) 0.8 %; HCT - HEMATOCRIT 38.3 % (37.0-47.0); HGB - HEMOGLOBIN 12.3 g/dL (12.0-16.0); LYMPHOCYTES # (AUTO) 3.1 10^3/uL (1.5-3.5); MEAN CORPUSCULAR HEMOGLOBIN 28.3 pg (27.0-31.0); MEAN CORPUSCULAR HGB CONC 32.1 g/dL (32.0-36.0); MEAN PLATELET VOLUME 10.7 fL (7.9-10.8); MONOCYTES # (AUTO) 0.7 10^3/uL (0.0-1.0); NEUTROPHILS % (AUTO) 60.5 %; PLT - PLATELET COUNT 231 10^3/uL (130-450); RED BLOOD COUNT 4.35 10^6/uL (4.20-5.40); RED CELL DISTRIBUTION WIDTH 14.2 % (12.0-15.0); WHITE BLOOD COUNT 9.9 x10^3/uL (4.8-10.8)
[2023-07-26 19:51] LABS: ALBUMIN 4.4 g/dL (3.2-5.5); ALBUMIN/GLOBULIN RATIO 1.5 (1.0-2.2); BILIRUBIN,TOTAL 0.3 mg/dL (0.2-1.0); CALCIUM 9.8 mg/dL (8.5-10.3); CREATININE 0.7 mg/dL (0.6-1.3); POTASSIUM 3.8 mmol/L (3.5-4.5); TOTAL PROTEIN 7.4 g/dL (6.4-8.9)
[2023-07-26 21:04] LABS: BILIRUBIN,URINE NEGATIVE (NEGATIVE); GLUCOSE, URINE (UA) NEGATIVE (NEGATIVE); KETONES,URINE (UA) NEGATIVE (NEGATIVE); LEUKOCYTE ESTERASE, URINE NEGATIVE (NEGATIVE); NITRITE,URINE NEGATIVE (NEGATIVE); OCCULT BLOOD,URINE NEGATIVE (NEGATIVE); PROTEIN,URINE NEGATIVE (NEGATIVE); UROBILINOGEN,URINE 0.2 (NORMAL) E.U./dL (NORMAL)
[2023-07-26 21:10] LABS: CLARITY,URINE CLEAR (CLEAR)
[2023-07-26 21:15] LABS: HCG UR QUAL NEGATIVE
[2023-07-26] MEDS ORDERED: iohexoL-300 100 ML VIAL ONE (22:25)
--- NOTE | 2023-07-26 23:18 | ED Physician Documentation ---
PD HPI ABD PAIN - Stated complaint Stated Complaint: ABD PX - Chief complaint Chief Complaint: Abd Pain - History obtained from History obtained from: Patient, Family - History of Present Illness Timing - onset: How many weeks ago (1) Timing - duration: Weeks (1) Timing - details: Gradual onset, Still present Quality: Cramping, Sharp, Pain Location: RLQ Improved by: Laying still Worsened by: Eating, Moving, Position, Palpation Associated symptoms: Nausea. No: Vomiting Similar symptoms before: Has not had sx before Recently seen: Not recently seen - Additional information Additional information: 48-year-old Anjelica Hastings presents to the emergency department with 1 week history of abdominal pain localized to the right lower quadrant. She continued to go to work she continued to eat and she continued to have pain when she was having more difficulty walking around today and she was had this pain for the past week she has been encouraged to go to the hospital multiple times. She finally took today off to come to the emergency department with her . She indicates that she has had a decrease in her appetite but she has not had fever she has had pain that is persistent and worse with movement and palpation. She has a prior history of coronary artery disease presenting early with an SD at 30 years old. She has a single stent placed in the posterior aspect of the heart. She has a pacemaker in place as well. Review of Systems Constitutional: denies: Fever Eyes: denies: Decreased vision Ears: denies: Ear pain Nose: denies: Rhinorrhea / runny nose, Congestion Throat: denies: Sore throat Cardiac: denies: Chest pain / pressure, Palpitations Respiratory: denies: Dyspnea, Cough GI: reports: Abdominal Pain, Nausea. 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 Cardiovascular: Coronary stent, Pacemaker - Present Medications Home Medications: Ambulatory Orders Medication Instructions Recorded Confirmed Aspirin 81 mg PO DAILY 11/08/12 07/26/23 Levothyroxine Sodium [Synthroid] 200 mcg ORAL DAILY 11/08/12 07/26/23 Metoprolol Succinate 25 mg PO DAILY 12/31/12 07/26/23 Trazodone HCl 100 mg PO QPM PRN 07/30/13 07/26/23 Rosuvastatin Calcium [Crestor] 40 mg PO DAILY 06/24/15 07/26/23 ALPRAZolam [Xanax] 0.5 mg PO Q8HR PRN 01/04/18 07/26/23 Gabapentin 900 mg PO DAILY 01/04/18 07/26/23 DULoxetine [Cymbalta] See Rx Instructions .ROUTE .COMPLEX 02/25/23 07/26/23 Evolocumab [Repatha Sureclick] See Rx Instructions .ROUTE .COMPLEX 02/25/23 07/26/23 Losartan [Cozaar] See Rx Instructions .ROUTE .COMPLEX 02/25/23 07/26/23 Oxycodone HCl/Acetaminophen See Rx Instructions .ROUTE .COMPLEX 02/25/23 07/26/23 [Percocet 10-325 mg Tablet] - Allergies Allergies/Adverse Reactions: Allergies Allergy/AdvReac Type Severity Reaction Status Date / Time No Known Drug Allergies Allergy Verified 07/26/23 19:14 - Social History Does the pt smoke?: No Smoking Status: Never smoker Does the pt drink ETOH?: No Does the pt have substance abuse?: No - Immunizations Immunizations are current?: Yes - POLST Patient has POLST: No PD ED PE NORMAL - Vitals Vital signs reviewed: Yes (hypertensive) - General General: Alert and oriented X 3, No acute distress, Well developed/nourished - HEENT HEENT: Atraumatic, PERRL, EOMI - Neck Neck: Supple, no meningeal sign, No bony TTP - Cardiac Cardiac: RRR, No murmur - Respiratory Respiratory: No respiratory distress - Abdomen Abdomen: Normal bowel sounds, Soft, Non distended, No organomegaly, Other (There is point tenderness to the right lower abdomen specifically over McBurney's point and there is not referred tenderness from palpation of the abdomen elsewhere. 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 Relevant findings are: Rate: Rate (enter#) (62) Rhythm: Paced Intervals: LBBB (incomplete) Compare to prior EKG: Unchanged from prior EKG (SP 02-25-23 no changes) Computer interpretation: Agree with computer - Labs Labs: Laboratory Tests 07/26/23 07/26/23 07/26/23 19:00 19:00 19:20 WBC RBC Hgb Hct MCV MCH MCHC RDW Plt Count MPV Neut # (Auto) Lymph # (Auto) Dare # (Auto) Eos # (Auto) Baso # (Auto) Absolute Nucleated RBC Nucleated RBC % Sodium Potassium Chloride Carbon Dioxide Anion Gap BUN Creatinine Estimated GFR (MDRD) Glucose Calcium Total Bilirubin AST ALT Alkaline Phosphatase Troponin I High Sens 5.8 Total Protein Albumin Globulin Albumin/Globulin Ratio Lipase Urine Color YELLOW Urine Clarity CLEAR Urine pH 7.0 Ur Specific [place] 1.010 Urine Protein NEGATIVE Urine Glucose (UA) NEGATIVE Urine Ketones NEGATIVE Urine Occult Blood NEGATIVE Urine Nitrite NEGATIVE Urine Bilirubin NEGATIVE Urine Urobilinogen 0.2 (NORMAL) Ur Leukocyte Esterase NEGATIVE Ur Microscopic Review NOT INDICATED Urine Culture Comments NOT INDICATED Urine HCG, Qual NEGATIVE 07/26/23 07/26/23 19:22 19:22 WBC 9.9 RBC 4.35 Hgb 12.3 Hct 38.3 MCV 88.0 MCH 28.3 MCHC 32.1 RDW 14.2 Plt Count 231 MPV 10.7 Neut # (Auto) 6.0 Lymph # (Auto) 3.1 Dare # (Auto) 0.7 Eos # (Auto) 0.1 Baso # (Auto) 0.0 Absolute Nucleated RBC 0.00 Nucleated RBC % 0.0 Sodium 136 Potassium 3.8 Chloride 100 L Carbon Dioxide 30 Anion Gap 6.0 BUN 16 Creatinine 0.7 Estimated GFR (MDRD) 89 Glucose 96 Calcium 9.8 Total Bilirubin 0.3 AST 10 ALT 9 L Alkaline Phosphatase 60 Troponin I High Sens Total Protein 7.4 Albumin 4.4 Globulin 3.0 Albumin/Globulin Ratio 1.5 Lipase 59 Urine Color Urine Clarity Urine pH Ur Specific [place] Urine Protein Urine Glucose (UA) Urine Ketones Urine Occult Blood Urine Nitrite Urine Bilirubin Urine Urobilinogen Ur Leukocyte Esterase Ur Microscopic Review Urine Culture Comments Urine HCG, Qual - Rads (name of study) CT ab/pel Relevant Findings:: Prelim report reviewed (Impression: Mild acute appendicitis, without evidence of appendiceal perforation. Caliber of the appendix measures up to 1.1 cm, and it extends almost to the inferior tip of the right hepatic lobe. Therefore the appendix is elongated and can produce unusual symptomatology in this position.), EMP independent interpretation of test PD Medical Decision Making - ED course Complexity details: reviewed old records, reviewed results, re-evaluated patient, considered differential, d/w patient, d/w family Reviewed Lab Results: We reviewed a complete blood count showing a normal white blood cell count of 9.9 and normal hemoglobin globin hematocrit and platelets. Chemistries were equally benign normal electrolytes normal kidney and liver function normal high- sensitivity troponin urinalysis unremarkable negative . These laboratory results do not contribute to a specific diagnosis. They are essentially all normal. They do help to rule out a coronary symptom as a reason for the patient's heartburn. We obtained a CT scan of the patient's abdomen and pelvis and found an elongated enlarged appendix consistent with early acute appendicitis with likely atypical symptomatology. I interpreted this to indicate the patient has appendicitis and called the surgeon. ED course: 48-year-old Anjelica Hastings presents to the emergency department with a week long history of abdominal pain worse with movement. She did not have the typical fever, progressive pain and anorexia of appendicitis but she does have persistent specific point tenderness on her abdomen. She does have a reduced appetite. Here in the emergency department she develops heart burn which she attributes to eating gee at the [employer] in [place] today. She has a history of early coronary disease and for this reason we added trop and EKG to the work up and found these to be normal as well. Her CT scan demonstrated an enlarged elongated appendix known to cause atypical presentation. I consulted our surgeon who will take the patient to the operating room in the morning. Departure - Departure Disposition: ED Transfer to [facility] Clinical Impression: Appendicitis Qualifiers: Appendicitis type: acute appendicitis Acute appendicitis type: with localized peritonitis Appendicitis gangrene presence: without gangrene Appendicitis perforation presence: without perforation Appendicitis abscess presence: without abscess Qualified Code(s): K35.30 - Acute appendicitis with localized peritonitis, without perforation or gangrene Condition: Stable Discharge Date/Time: 07/27/23 01:06
[2023-07-26] MEDS: iohexoL-300 100 ML VIAL IVP ONE (23:35)
--- NOTE | 2023-07-27 00:01 | CT Report ---
PROCEDURE: Abdomen/Pelvis W INDICATIONS: persistent RLQ pain 7d CONTRAST: 100 ML OMNI 300 TECHNIQUE: After the administration of intravenous contrast, a CT scan of the abdomen and pelvis was performed. Images were recorded and evaluated at appropriate window settings. Reformats: coronal and sagittal. F or radiation dose reduction, the following was used: automated exposure control, adjustment of mA and /or kV according to patient size. COMPARISON: None. FINDINGS: Image quality: Diagnostic. Lower chest: Unremarkable. Liver: No solid mass. Gallbladder and biliary tree: No gallbladder inflammation found. Spleen: No splenomegaly. Pancreas: No pancreatic ductal dilation. Adrenals: No adrenal nodule. Kidneys and ureters: No hydronephrosis. No renal cystic lesion which requires follow up. No solid mas s. Stomach, bowel and peritoneum: No bowel distension. No pathologic free fluid. Lymph nodes: No central or retroperitoneal adenopathy. Vessels: No infrarenal aortic aneurysm. PELVIS Reproductive organs: Unremarkable. Bladder: No abnormal wall thickening, accounting for underdistention. Pelvic lymph nodes: No pelvic adenopathy by size criteria. Bones: No aggressive osseous abnormality. Other: No significant ventral or inguinal hernia. The appendix is visualized from its origin at the c ecal tip extending cephalad and curving then immediately below the inferior tip of the right hepatic lobe. Mild periappendiceal edema is present and the appendix is abnormally large in caliber at 1.1 cm . No periappendiceal abscess. IMPRESSION: Mild acute appendicitis, without evidence of appendiceal perforation. Caliber of the appendix measure s up to 1.1 cm, and it extends almost to the inferior tip of the right hepatic lobe. Therefore the ap pendix is elongated and can produce unusual symptomatology in this position. Reviewed by: Fly Archuleta MD on 07/27/2023 12:00 AM PDT Approved by: Fly Archuleta MD on 07/27/2023 12:00 AM PDT Station ID: [id number]
[2023-07-27] MEDS ORDERED: SODIUM CHLORIDE FLUSH 0.9% 10 ML SYRINGE IVP PRN ×2 (00:27→07:36)
[2023-07-27] MEDS ORDERED: ONDANSETRON 4 MG/2 ML VIAL IVP PRN ×2 (00:39→05:51)
[2023-07-27] MEDS: PANTOPRAZOLE 40 MG VIAL IVP STA (00:45)
[2023-07-27] MEDS: SODIUM CHLORIDE 0.9% 1,000 ML IV STA (00:49)
[2023-07-27] MEDS: HYDROmorphone 0.5 MG/0.5 ML SYRINGE IVP PRN ×4 (01:34→14:23)
[2023-07-27] MEDS: ONDANSETRON ODT 4 MG TABLET TL SCH ×2 (01:37→09:43)
[2023-07-27] MEDS: NICOTINE 21 MG PATCH TOP SCH (01:37)
[2023-07-27] MEDS: SODIUM CHLORIDE FLUSH 0.9% 10 ML SYRINGE IVP SCH ×2 (01:37→08:37)
[2023-07-27] MEDS: D5.45NS W/20 MEQ KCL 1,000 ML IV SCH (01:48)
[2023-07-27] MEDS: oxyCODONE 5 MG TABLET PO PRN (04:10)
[2023-07-27] MEDS ORDERED: HYDROmorphone 0.5 MG/0.5 ML SYRINGE IVP PRN (05:34)
[2023-07-27] MEDS ORDERED: HYDROmorphone 0.5 MG/0.5 ML SYRINGE ONE ×5 (06:18→16:19)
[2023-07-27] MEDS ORDERED: ACETAMINOPHEN 325 MG TABLET PO ONE (06:19)
[2023-07-27] MEDS ORDERED: ACETAMINOPHEN 500 MG TABLET PO ONE (06:23)
[2023-07-27] MEDS: ACETAMINOPHEN 500 MG TABLET PO SCH ×2 (06:27→11:50)
[2023-07-27] MEDS: PIPERACILLIN/TAZOBACTAM 3.375 GM in SODIUM CHLORIDE 0.9% MINIBAG 100 ML IV SCH ×2 (06:33→09:43)
[2023-07-27] MEDS ORDERED: oxyCODONE 5 MG TABLET PO PRN ×2 (07:36→08:37)
[2023-07-27] MEDS ORDERED: NICOTINE 21 MG PATCH TOP SCH (09:00)
--- NOTE | 2023-07-27 09:00 | HISTORY & PHYSICAL EXAMINATION ---
Chief Complaint - Chief Complaint Chief Complaint: abdominal pain History of Present Illness - History Obtained From Records Reviewed: yes History obtained from: pt Exam Limitations: none - History of Present Illness HPI Comment/Other: recent abdominal pain. seen in the ED last pm. ct scan confirms appendicitis History - Past Medical History Cardiovascular: reports: Hypertension, Coronary artery disease, HI, Other Respiratory: reports: Sleep apnea Neuro: reports: Migraines Endocrine/Autoimmune: reports: HyPOthyroidism GI: reports: GERD : reports: Incontinence, Kidney stones HEENT: reports: None Psych: reports: Depression, Anxiety Musculoskeletal: reports: Osteoarthritis Derm: reports: Eczema, Other MRSA Hx?: No Other Past Medical History: patient VAPS, smokes cigarettes approx 10 day, reddness under abd, pacemaker, kindra hyperlipedia, graves disease prior to radioactive iodine tx, glasses, CPAP and does not use and recommended not needed at this time, pt snores per pt, bilateral knee replacement, Daiyers skin condition - Past Surgical History 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 Cardiovascular: reports: Coronary stent, Pacemaker - POLST Patient has POLST: No Meds/Allgy - Home Medications Home Medications: Ambulatory Orders Medication Instructions Recorded Confirmed Aspirin 81 mg PO DAILY 11/08/12 07/26/23 Levothyroxine Sodium [Synthroid] 200 mcg ORAL DAILY 11/08/12 07/26/23 Metoprolol Succinate 25 mg PO DAILY 12/31/12 07/26/23 Trazodone HCl 100 mg PO QPM PRN 07/30/13 07/26/23 Rosuvastatin Calcium [Crestor] 40 mg PO DAILY 06/24/15 07/26/23 ALPRAZolam [Xanax] 0.5 mg PO Q8HR PRN 01/04/18 07/26/23 Gabapentin 900 mg PO DAILY 01/04/18 07/26/23 DULoxetine [Cymbalta] See Rx Instructions .ROUTE .COMPLEX 02/25/23 07/26/23 Evolocumab [Repatha Sureclick] See Rx Instructions .ROUTE .COMPLEX 02/25/23 07/26/23 Losartan [Cozaar] See Rx Instructions .ROUTE .COMPLEX 02/25/23 07/26/23 Oxycodone HCl/Acetaminophen 2 tab PO BID 02/25/23 07/27/23 [Percocet 10-325 mg Tablet] - Allergies Allergies/Adverse Reactions: Allergies Allergy/AdvReac Type Severity Reaction Status Date / Time No Known Drug Allergies Allergy Verified 07/26/23 19:14 Review of Systems - Other Findings Other Findings: 10 pt ros as above otherwise unremarkable Exam - Vital Signs Vital Signs: Vital Signs x48h Temp Pulse Resp BP Pulse Ox 07/27/23 07:41 36.8 C 60 20 140/73 H 96 07/27/23 02:02 158/87 H 07/27/23 01:15 37.1 C 62 16 97 - Physical Exam General Appearance: positive: No acute distress, Alert Eyes Bilateral: positive: EOMI ENT: positive: No signs of dehydration Neck: positive: No JVD, Trachea midline Respiratory: positive: No respiratory distress Cardiovascular: positive: Regular rate & rhythm Abdomen: positive: No distention Neurologic/Psychiatric: positive: Oriented x3 Conclusion/Plan - Problem List (1) Appendicitis Conclusion/Plan: plan appendectomy. parq held and consent obtained Qualifiers: Appendicitis type: acute appendicitis Acute appendicitis type: with localized peritonitis Appendicitis gangrene presence: without gangrene Appendicitis perforation presence: without perforation Appendicitis abscess presence: without abscess Qualified Code(s): K35.30 - Acute appendicitis with localized peritonitis, without perforation or gangrene - Lab Results Fish Bones: 07/26/23 19:22 07/26/23 19:22 - Diagnostic Imaging Results Diagnostic Imaging Results: positive: Read independently (acute appendicitis)
[2023-07-27] MEDS ORDERED: fentaNYL 100 MCG/2 ML VIAL ONE ×2 (09:53→12:36)
[2023-07-27] MEDS ORDERED: ROCURONIUM 50 MG/5 ML VIAL ONE ×2 (09:53→09:59)
[2023-07-27] MEDS ORDERED: MIDAZOLAM 2 MG/2 ML VIAL ONE (09:53)
[2023-07-27] MEDS ORDERED: DEXAMETHASONE 4 MG/ML VIAL ONE (09:53)
[2023-07-27] MEDS ORDERED: ONDANSETRON 4 MG/2 ML VIAL ONE ×2 (09:53→13:00)
[2023-07-27] MEDS ORDERED: LIDOCAINE-PF 2% 10 ML AMP SUBQ ONE (09:53)
[2023-07-27] MEDS ORDERED: PROPOFOL 200 MG/20 ML VIAL IVP ONE (09:53)
[2023-07-27] MEDS ORDERED: SUGAMMADEX 200 MG/2 ML VIAL IVP ONE ×2 (09:54→12:01)
[2023-07-27] MEDS ORDERED: BUPIVACAINE 0.25% PF 30 ML VIAL ONE (10:14)
--- NOTE | 2023-07-27 10:43 | ANESTHESIA ---
Pre-Anesthesia VS, & Labs - Diagnosis APPENDICITIS - Procedure LAP APPY Vital Signs: Temp Pulse Resp BP Pulse Ox O2 Flow Rate 36.8 C 60 20 140/73 H 96 07/27/23 07:41 07/27/23 07:41 07/27/23 07:41 07/27/23 07:41 07/27/23 07:41 Height: 5 ft 2 in Weight (kg): 110 kg Body Mass Index: 44.3 BMI Classification: Morbidly Obese - NPO >8 hours Last Fluid Intake: SIPS H20 THIS AM - Is Patient ?: No - Lab Results Current Lab Results: Laboratory Tests 07/26/23 19:22: Sodium 136, Potassium 3.8, Chloride 100 L, Carbon Dioxide 30, Anion Gap 6.0, BUN 16, Creatinine 0.7, Estimated GFR (MDRD) 89, Glucose 96, Calcium 9.8, Total Bilirubin 0.3, AST 10, ALT 9 L, Alkaline Phosphatase 60, Total Protein 7.4, Albumin 4.4, Globulin 3.0, Albumin/Globulin Ratio 1.5, Lipase 59 07/26/23 19:22: WBC 9.9, RBC 4.35, Hgb 12.3, Hct 38.3, MCV 88.0, MCH 28.3, MCHC 32.1, RDW 14.2, Plt Count 231, MPV 10.7, Neut # (Auto) 6.0, Lymph # (Auto) 3.1, [place] # (Auto) 0.7, Eos # (Auto) 0.1, Baso # (Auto) 0.0, Absolute Nucleated RBC 0.00, Nucleated RBC % 0.0 07/26/23 19:20: Troponin I High Sens 5.8 Fish Bones: 07/26/23 19:22 07/26/23 19:22 Home Medications and Allergies Active Medications Acetaminophen (Acetaminophen 500 Mg Tablet) 500 mg PO Q6HR ELDON Hydromorphone HCl (Hydromorphone 0.5 Mg/0.5 Ml Syringe) 0.5 mg IVP Q2HR PRN PRN Reason: Abdominal Pain Potassium Chloride/Dextrose/Sod Cl (D5.45ns W/20 Meq Kcl) 1,000 mls @ 100 mls/hr IV .Q10H ELDON Last Infusion: 07/27/23 09:44 Dose: 0 mls/hr Piperacillin Sod/Tazobactam (Sod 3.375 gm/ Sodium Chloride) 100 mls @ 25 mls/hr IV Q8H [facility] Last Admin: 07/27/23 09:43 Dose: 25 mls/hr Ondansetron HCl (Ondansetron 4 Mg/2 Ml Vial) 4 mg IVP Q6HR PRN PRN Reason: Nausea / Vomiting Ondansetron HCl (Ondansetron Odt 4 Mg Tablet) 4 mg TL Q4HR [facility] Last Admin: 07/27/23 09:43 Dose: 4 mg Oxycodone HCl (Oxycodone 5 Mg Tablet) 5 mg PO Q4HR PRN PRN Reason: Abdominal Pain Sodium Chloride (Sodium Chloride Flush 0.9% 10 Ml Syringe) 10 ml IVP PRN PRN PRN Reason: NEEDED PER PROVIDER ORDERS Sodium Chloride (Sodium Chloride Flush 0.9% 10 Ml Syringe) 10 ml IVP 0100,0900,1700 [facility] Last Admin: 07/27/23 08:37 Dose: 10 ml Aspirin 81 mg PO DAILY 11/08/12 Levothyroxine Sodium [Synthroid] 200 mcg ORAL DAILY 11/08/12 Metoprolol Succinate 25 mg PO DAILY 12/31/12 Trazodone HCl 100 mg PO QPM PRN 07/30/13 Rosuvastatin Calcium [Crestor] 40 mg PO DAILY 06/24/15 ALPRAZolam [Xanax] 0.5 mg PO Q8HR PRN 01/04/18 Gabapentin 900 mg PO DAILY 01/04/18 DULoxetine [Cymbalta] See Rx Instructions .ROUTE .COMPLEX 02/25/23 Evolocumab [Repatha Sureclick] See Rx Instructions .ROUTE .COMPLEX 02/25/23 Losartan [Cozaar] See Rx Instructions .ROUTE .COMPLEX 02/25/23 Oxycodone HCl/Acetaminophen [Percocet 10-325 mg Tablet] 2 tab PO BID 02/25/23 Allergies/Adverse Reactions: Allergies Allergy/AdvReac Type Severity Reaction Status Date / Time No Known Drug Allergies Allergy Verified 07/26/23 19:14 Anes History & Medical History - Anesthetic History Anesthesia Complications: reports: No previous complications, Post-Operative Nausea/Vomiting Family history of Anesthesia Complications: Denies - Medical History Cardiovascular: reports: Hypertension, Coronary artery disease, ME (2005, PACER IN 2005), Other (DENIES CP/AND HAS MINIMAL SOB WITH STAIRS (SMOKES); TALKS WALKS REGULARLY WITHOUT CP; SOMEWHAT LIMITED BY KNEE PROBLEMS; NO RECENT ECHO; SHE REPORTS EF WAS REDUCED BEFORE PACEMAKER; BUT SHE HAS IMPROVED SINCE THE PACER IN 2012, NO BLOOD THINNERS, ONLY BABY ASA, NEGATIVE TROPONINS YESTERDAY) Pulmonary: reports: Sleep apnea (USE [facility]; ENCOURAGED TO USE) Gastrointestinal: reports: GERD (PRN OMEPRAZOLE, SOMETIMES SLEEPS ON PILLOWS; WILLL RSI) Urinary: reports: Incontinence, Kidney stones Neuro: reports: Migraines Musculoskeletal: reports: Osteoarthritis Endocrine/Autoimmune: reports: HyPOthyroidism Blood Disorders: reports: None Skin: reports: Eczema, Other Smoking Status: Never smoker Other Past Medical History: patient VAPS, smokes cigarettes approx 10 day, reddness under abd, pacemaker, kindra hyperlipedia, graves disease prior to radioactive iodine tx, glasses, CPAP and does not use and recommended not needed at this time, pt snores per pt, bilateral knee replacement, Daiyers skin condition - Surgical History Cardiothoracic: reports: Coronary stent, Pacemaker Gynecologic: reports: section Orthopedic: reports: Knee replacement Results - EKG Results EKG Comparison: Reviewed EKG Exam General: Alert Dental: WNL Mouth Openin Fingerbreadth Neck Mobility: Normal Mallampati classification: III Thyromental Distance: 4-6 cm Respiratory: Lungs clear Cardiovascular: Regular rate Plan Anesthesia Type: General Consent for Procedure(s) Verified and Reviewed: Yes Code Status: Attempt Resuscitation ASA classification: 3-Severe systemic disease Is this case an emergency?: Yes
[2023-07-27] MEDS ORDERED: MORPHINE 2 MG/ML CARPUJECT IVP PRN (10:47)
[2023-07-27] MEDS ORDERED: ePHEDrine 50 MG/ML VIAL IVP PRN (10:47)
[2023-07-27] MEDS ORDERED: METOCLOPRAMIDE 10 MG/2 ML VIAL IVP PRN (10:47)
[2023-07-27] MEDS ORDERED: NALOXONE 0.4 MG/ML VIAL IVP PRN (10:47)
[2023-07-27] MEDS ORDERED: fentaNYL 100 MCG/2 ML VIAL IVP PRN (10:47)
[2023-07-27] MEDS ORDERED: ATROPINE ABBOJECT 1 MG/10 ML SYRINGE IVP PRN (10:47)
[2023-07-27] MEDS ORDERED: KETAMINE 200 MG/20 ML VIAL ONE ×3 (11:33→13:48)
[2023-07-27] MEDS: BUPIVACAINE 0.25% PF 30 ML VIAL SUBQ ONE (11:52)
[2023-07-27] MEDS ORDERED: KETOROLAC 30 MG/ML VIAL ONE (12:30)
[2023-07-27] MEDS: LACTATED RINGERS 1,000 ML IV ONE ×2 (12:37→13:00)
[2023-07-27] MEDS ORDERED: DEXMEDETOMIDINE 200 MCG/2 ML VIAL ONE (12:42)
[2023-07-27] MEDS ORDERED: HYDROmorphone 1 MG/ML CARPUJECT ONE (12:49)
--- NOTE | 2023-07-27 12:49 | OPERATIVE REPORT ---
Operative Report - General Admit Date: 07/27/23 Procedure Date: 07/27/23 Planned Procedure: lap appy Pre-Op Diagnosis: acute appendicitis Procedure Performed: lap appy Post Op Diagnosis: acute appendicitis - Procedure Note Primary Surgeon: angela brown Anesthesia Technique: General ET tube, Local Pathology: appendix Estimated Blood Loss (mL): 2 Drain/Tube Type: Other (none) Indications: acute appendicitis Findings: acute appendicitis Complications: none - Other Other Information/Narrative: The patient was properly identified brought to the operating room and placed in supine position. The patient was previously given antibiotics. Sequential compression devices were placed. General endotracheal anesthesia was induced. The patient was prepped and draped in a sterile fashion. Local anesthetic was given to incision areas. An infraumbilical incision was made in and proceeded down to the fascia. The fascia was incised lifted upwards and abdomen entered with a Veress needle. CO2 was insufflated to a pressure of 15. A 12 mm trocar was placed with 30 degree scope. There was no evidence of injury from Veress needle or trocar placement. Under direct vision a 5 mm trocar was placed suprapubic and a 5 mm trocar was placed in the right upper quadrant. Appendix was identified and retracted anteriorly. Peritoneal attachments were taken down with careful use of cautery. Appendix was mobilized more anterior. A plane was then created between the mesoappendix and the appendix at the cecum. Appendix was divided with an Endo SHERRON intestinal load to include up a small portion of the cecum. The mesoappendix was then divided with an Endo SHERRON vascular load. There was secure closure at the cecum and hemostasis was assured. The appendix was brought out. The abdomen was thoroughly irrigated and hemostasis again assured. Trochars were removed under direct vision. Fascia at the infraumbilical site was closed with a running 0 Vicryl suture. Subcutaneous tissue was irrigated and skin reapproximated with buried interrupted 4-0 Monocryl. Dressings were applied. The patient tolerated the procedure well was awakened and brought to recovery in good condition.
[2023-07-27] MEDS: ONDANSETRON 4 MG/2 ML VIAL IVP PRN (13:01)
[2023-07-27] MEDS ORDERED: LORazepam 2 MG/ML VIAL ONE (13:06)
[2023-07-27] MEDS: LORazepam 2 MG/ML VIAL IVP PRN (13:10)
[2023-07-27] MEDS ORDERED: ACETAMINOPHEN 1,000 MG/100 ML 1,000 MG/100 ML BAG IV ONE (13:16)
[2023-07-27] MEDS: ACETAMINOPHEN 1,000 MG/100 ML 1,000 MG/100 ML BAG IV ONE (13:29)
[2023-07-27] MEDS: LACTATED RINGERS 1,000 ML IV SCH (14:01)
--- NOTE | 2023-07-27 14:04 | ANESTHESIA POST OP EVALUATION ---
Anesthesia Post Eval - Post Anesthesia Eval Vitals: Last Vital Signs Temp 36.9 C 07/27/23 13:40 Pulse 60 07/27/23 13:40 Resp 16 07/27/23 13:40 BP 164/82 H 07/27/23 13:40 Pulse Ox 99 07/27/23 13:40 O2 Flow Rate CV Function Including HR & BP: Stable Pain Control: Satisfactory Nausea & Vomiting: Negative Mental Status: Baseline Respiratory Status: Airway Patent Hydration Status: Satisfactory Anesthesia Complications: None (pt was anxious and in pain in the pacu; required hydromorphone, ativan, precedex and IV tylenol perfore transferring to the floor. Per PACU nurse; pt was doing much better)
[2023-07-27] MEDS: METOPROLOL SUCCINATE 25 MG TABLET PO SCH (14:22)
[2023-07-27] MEDS: GABAPENTIN 300 MG CAPSULE PO SCH (14:23)
[2023-07-27 15:55] VITALS: O2SAT 97
[2023-07-27] MEDS ORDERED: LORazepam 1 MG TABLET ONE (16:19)
[2023-07-27] MEDS: LORazepam 1 MG TABLET PO PRN (16:28)
[2023-07-27 17:01] VITALS: BP 171/86
[2023-07-28] MEDS ORDERED: fentaNYL 100 MCG/2 ML VIAL ONE (08:42)
[2023-07-28] MEDS ORDERED: MIDAZOLAM 2 MG/2 ML VIAL ONE (08:42)
[2023-07-28] MEDS ORDERED: PROPOFOL 200 MG/20 ML VIAL IVP ONE (08:43)
[2023-07-28] MEDS ORDERED: LIDOCAINE-MPF 1% 30 ML VIAL ONE (09:01)
== END 2023-07-27 17:11 | disposition home or self-care (01) ==
LOC: ED 19:01 → UNDOADMIN 07-27 00:27 → MS2 07-27 00:27 → SDS 07-27 00:27 → UNDODISIN 07-27 17:11
PROVIDERS: ATTEND Surgery
PROC: 0DTJ4ZZ Resection of Appendix, Percutaneous Endoscopic Approach (ICD-10-PCS; principal; 2023-07-27 10:30)
DX: K35.80 Unspecified acute appendicitis (principal); E66.01 Morbid (severe) obesity due to excess calories; Z68.41 Body mass index [BMI] 40.0-44.9, adult; I10 Essential (primary) hypertension; I25.10 Atherosclerotic heart disease of native coronary artery without angina pectoris; Z95.0 Presence of cardiac pacemaker; Z98.61 Coronary angioplasty status; Z87.891 Personal history of nicotine dependence; E03.9 Hypothyroidism, unspecified
CPT/HCPCS: 36415; 44970; 74177; 80053; 81003; 81025; 83690; 84484; 85025; 93005; 96374; 99285; A9270; J0131; J1170; J2060; J3490; J7120; J8499; Q0162; Q9967; 81001; 87086

== ENCOUNTER 2023-12-22 10:42 | Outpatient (CLI) | payer OTHER ==
--- NOTE | 2023-12-23 09:06 | CT Report ---
PROCEDURE: Abdomen/Pelvis WO INDICATIONS: FLANK PAIN TECHNIQUE: A CT scan of the abdomen and pelvis was performed without the use of intravenous contrast. Images we re recorded and evaluated at appropriate window settings. Reformats: coronal and sagittal. For radiat ion dose reduction, the following was used: automated exposure control, adjustment of mA and/or kV ac cording to patient size. COMPARISON: CT abdomen and pelvis dated 06/27/2023. FINDINGS: Image quality: Diagnostic. Lower chest: Mild cardiomegaly. Defibrillator/pacemaker leads in the heart.. Liver: No contour-deforming mass. Gallbladder: Biliary tree: No intrahepatic or extrahepatic dilation, accounting for age. Spleen: No splenomegaly. Pancreas: No pancreatic ductal dilation. Adrenals: No adrenal nodule. Kidneys and ureters: No hydronephrosis. No contour-deforming mass. Stomach, bowel and peritoneum: No gastric or small bowel dilation. No abnormal wall thickening. No pa thologic free fluid. Minimal diverticulosis without evidence of diverticulitis. Surgical changes of t he distal ileum, colon. Lymph nodes: No central or retroperitoneal adenopathy. Vessels: No infrarenal aortic aneurysm. Reproductive organs: Unremarkable appearance of uterus. Ovaries not well visualized. Bladder: No stones in the bladder. Bladder is decompressed and poorly evaluated. Pelvic lymph nodes: No adenopathy by size criteria. Bones: Sclerotic lesion to the right pubic ramus, similar to prior study.. Other: No significant ventral or inguinal hernia. IMPRESSION: 1. No hydronephrosis or obstructing renal stone. 2. Appendix surgically absent 3. No definite CT findings to extend patient's symptomology 4. Sclerotic lesion of the right pubic ramus similar to prior study of unknown etiology. Reviewed by: George Linares MD on 12/23/2023 9:05 AM PDT Approved by: George Linares MD on 12/23/2023 9:05 AM PDT Station ID: [id number]
== END 2023-12-22 10:43 | disposition home or self-care (01) ==
LOC: DI 10:42
PROVIDERS: ATTEND Physician Assistant Medical
DX: R10.9 Unspecified abdominal pain (principal); M89.9 Disorder of bone, unspecified

== ENCOUNTER 2024-02-02 12:44 | Outpatient (CLI) | payer OTHER ==
--- NOTE | 2024-02-03 09:44 | Mammography Report ---
BILATERAL DIGITAL SCREENING MAMMOGRAM 3D/2D: 02/02/2024 CLINICAL: Routine screening. Comparison is made to exam dated: 09/07/2014 mammogram - [facility]. There are scattered areas of fibroglandular density (category b / 25%-50% glandular tissue). No significant masses, calcifications, or other findings are seen in either breast. There has been no significant interval change. IMPRESSION: NEGATIVE There is no mammographic evidence of malignancy. A 1 year screening mammogram is recommended. Based on the Tyrer Cuzick model (a risk assessment model) the patient's lifetime risk is 6.7% and her 10 year risk is 1.5%. According to the ACR, ACS, and NCCN guidelines, an annual breast MRI exam antonia g with mammogram is recommended if the patient's lifetime risk is 20% or greater. This exam was interpreted at Station ID: [id number]. NOTE: For mammograms, a report in lay terms will be sent to the patient. Approximately 15% of breast malignancies will not be visualized mammographically. In the management of a palpable breast mass, a negative mammogram must not discourage biopsy of a clinically suspicious lesion. Electronically Signed By: Cecily Summers M.D., Ph.D. eb/penrad:02/03/2024 09:08:05 ACR BI-RADS Category 1: Negative PARENCHYMAL PATTERN: (A) - The breast(s) demonstrate(s) scattered fibroglandular densities. BI-RADS CATEGORY: (1) - 1 RECOMMENDATION: (ANNUAL) - Recommend routine annual screening mammography. [id number] 1 year screening LATERALITY: (B)
== END 2024-02-02 12:45 | disposition home or self-care (01) ==
LOC: DI 12:44
PROVIDERS: ATTEND Internal Medicine
DX: Z12.31 Encounter for screening mammogram for malignant neoplasm of breast (principal)